=== PATIENT | male | born 1990 | race Caucasian/White ===

== ENCOUNTER 2022-11-30 01:57 | Emergency (ER) | payer OTHER, SELFPAY ==
[2022-11-30 02:16] VITALS: BP 136/63; PULSE 79; RESP 16; TEMP 36.6; O2SAT 98; BMI 24.4
[2022-11-30] MEDS: Doxycycline Monohydrate 100 MG CAPSULE PO (04:07)
[2022-11-30] MEDS: Lidocaine HCl 1 % MPF 2 ML VIAL INFILTRATI (04:07)
--- NOTE | 2022-11-30 04:32 | ED_ITS ---
HPI - Skin/Abscess/Foreign Bdy General Chief complaint: Skin/Abscess/Foreign Body Stated complaint: Abscess Time Seen by Provider: 11/30/22 03:48 Source: patient Mode of arrival: ambulatory Limitations: no limitations History of Present Illness HPI narrative: Patient with frequent a kidney infection noticed old acne rash on the right earlobe 3 days ago which got worse in last 24 hours patient expressed small amou nt of pus now is getting more swollen and pain Related Data Previous Rx's Medication Instructions Recorded doxycycline hyclate 100 mg tablet 100 mg PO BID #20 tabs 11/30/22 ibuprofen 600 mg tablet 600 mg PO Q6H PRN fever or pain 11/30/22 #30 tabs Allergies Allergy/AdvReac Type Severity Reaction Status Date / Time No Known Allergies Allergy Verified 11/30/22 02:24 Review of Systems Review of Systems: Yes all other systems are reviewed and are negative [facility] Social History Social History Advance Directives: No Advance Directives Information Provided: No Physical Exam Vital Signs: Vital Signs: Last Vital Signs Temp 97.8 F 11/30/22 02:16 Pulse 79 11/30/22 02:16 Resp 16 11/30/22 02:16 BP 136/63 11/30/22 02:16 Pulse Ox 98 11/30/22 02:16 O2 Del Method Room Air 11/30/22 02:16 BMI result Body Mass Index 24.4 HEENT: Outer ear/TM images: 1. Swollen right lower part of right earlobe fluctuant with redness Medications Administered Discontinued Medications Generic Name Dose Route Start Last Admin Trade Name Freq PRN Reason Stop Dose Admin Doxycycline Monohydrate 100 mg 11/30/22 03:48 11/30/22 04:07 Doxycycline Monohydrate 100 Mg Capsule PO 11/30/22 03:49 100 mg ONCE ONE Administration Lidocaine HCl 2 ml 11/30/22 03:48 11/30/22 04:07 Lidocaine Hcl 1 % Mpf 2 Ml Vial INFILTRATI 11/30/22 03:49 2 ml ONCE ONE Administration Medical Decision Making Medical Decision Making MDM Narrative: Patient with right earlobe abscess uncomplicated which was drained by doing I and D in the ER patient felt better discharge patient on doxycycline Procedures Abscess I/D Site: face (Right earlobe) Side (if applicable): right Local Anesthetic: lidocaine 1% Amount of anesthesia used (mL): 2 Technique: incised with blade Amount of fluid expressed (mL): 1 Sent for culture/gram staining?: No Irrigation: No Packing used?: plain Discharge Plan Discharge Clinical Impression: Abscess of skin or subcutaneous tissue Patient Disposition: Home, Self-Care Instructions: Abscess Incision and Drainage (DC) Additional Instructions: Local care as advised Antibiotic as prescribed Follow with your PCP Prescriptions: New ibuprofen 600 mg tablet 600 mg PO Q6H PRN (Reason: fever or pain) Qty: 30 0RF doxycycline hyclate 100 mg tablet 100 mg PO BID Qty: 20 0RF Stand Alone Forms: Work/School Release Interventions: ED Discharge Assessment Last Done: 11/30/22 04:37 Discharge Date/Time: 11/30/22 04:37
== END 2022-11-30 04:37 | disposition home or self-care (01) ==
PROVIDERS: Emergency Provider Internal Medicine
DX: H60.01 Abscess of right external ear (principal)
CPT/HCPCS: 69000; 99282; 99284

== ENCOUNTER 2023-04-26 09:20 | Emergency (ER) | payer OTHER, SELFPAY ==
[2023-04-26 09:36] VITALS: BP 145/80; PULSE 95; RESP 16; TEMP 36.6; O2SAT 99; BMI 26.4
--- NOTE | 2023-04-26 09:41 | ED.GENADULT ---
HPI - General Adult General Chief complaint: General Medical Stated complaint: COVID Test Time Seen by Provider: 04/26/23 09:41 Source: patient, RN notes reviewed and old records reviewed Mode of arrival: ambulatory History of Present Illness HPI narrative: 32-year-old male with no significant past medical history presenting to the ED requesting COVID-19 testing for his job. States someone tested positive 5 days ago, potential exposure to days ago. Denies any symptoms present including new/worsening cough, fevers/chills, sore throat, travel. Reports chronic cough due to cigarette smoking Onset (ago): day(s) Related Data Previous Rx's Medication Instructions Recorded doxycycline hyclate 100 mg tablet 100 mg PO BID #20 tabs 11/30/22 ibuprofen 600 mg tablet 600 mg PO Q6H PRN fever or pain 11/30/22 #30 tabs Allergies Allergy/AdvReac Type Severity Reaction Status Date / Time No Known Allergies Allergy Verified 11/30/22 02:24 Review of Systems Review of Systems: Constitutional:No Fever, No Chills ENT/Mouth: No Ear Pain, No Nasal Congestion, No Sinus Pain, No Hoarseness, No sore throat, No Rhinorrhea, No Swallowing Difficulty Cardiovascular: No Chest Pain, No SOB Respiratory: +chronic Cough, No Sputum, No Wheezing Gastrointestinal: No Nausea, No Vomiting, No Diarrhea, No Constipation, No Abdominal pain Musculoskeletal: No joint pain, No Myalgias Skin: No Skin Lesions, No rash Neuro: No Weakness Yes all other systems are reviewed and are negative Constitutional: Constitutional: Reports as per [facility] Past Medical History Attestation statement: The following information was validated with the patient. Source: old records reviewed Social History Social History Advance Directives: No Physical Exam ED Vital Signs: Vital Signs - 24 hr 04/26/23 09:36 Temperature 97.8 F Pulse Rate 95 Respiratory Rate 16 Blood Pressure 145/80 H Pulse Oximetry 99 Oxygen Delivery Method Room Air BMI result Body Mass Index 26.4 Const General: cooperative, healthy appearing and no acute distress Orientation/consciousness: patient oriented x3 Limitations: no limitations HENMT Head: Yes normal to inspection and Yes atraumatic Ears: hearing grossly normal bilaterally General nose exam: Normal external nose present Face and sinus: Yes normal facial exam Eyes General: appearance normal, both eyes and all related structures EOM: EOMs intact bilaterally Neck Neck: Yes normal visual inspection and Yes no meningeal signs Resp Effort & Inspection: normal respiratory effort and no respiratory distress Auscultation: clear to auscultation bilaterally, no crackles, no rhonchi and no wheezes Cardio Rate: regular rate Heart sounds: S1 normal heart sound present and S2 normal heart sound present Skin Rashes: no rashes Wounds: no wounds Neuro General: patient oriented x3, tone normal and no meningeal signs Cranial nerves: Yes CN's II-XII intact bilaterally Gait exam (Neuro): Normal gait present Extrem General: Yes normal to inspection Course Course Course Narrative: COVID and influenza negative Results discussed with patient including worrisome signs and symptoms and strict return precautions, and when to return to the emergency department. They verbalized understanding and feel safe for discharge at this time. Medical Decision Making Medical Decision Making [facility] Narrative: 32-year-old male with no significant past medical history presenting to the ED requesting COVID-19 testing for his job. On exam vital signs stable, NAD, nontoxic appearing, exam unremarkable. Concern for viral syndrome/COVID-19. Plan: COVID & influenza testing Please refer to course for remaining clinical decision making, interpretation of labs/imaging results, and discussions with consultants and/or family members. Differential Diagnosis Differential Diagnoses: The differential diagnosis associated with the presentation includes As above Lab Data [facility] Lab Attestation statement: I reviewed the patient's lab results. Labs: Lab Results 04/26/23 Range/Units 09:30 COVID-19 (DAISY) Negative (Negative) COVID-19 Clin Com See Note Influenza Type A (RAMSES) Negative (Negative) Influenza Type B (RAMSES) Negative (Negative) Influenza A & B Note See Note External Record Review External record reviewed: Inpatient record, Office record, Outpatient record, Prior outpatient labs, Prior outpatient radiology, Primary care record and Outside ED record Tests considered The following testing was considered but not selected: As above Discharge Plan Discharge Patient Disposition: Home, Self-Care Prescriptions: No Action ibuprofen 600 mg tablet 600 mg PO Q6H PRN (Reason: fever or pain) Qty: 30 0RF doxycycline hyclate 100 mg tablet 100 mg PO BID Qty: 20 0RF Referrals: [facility] [Outside] Physician,None [Primary Care Provider] -
[2023-04-26 10:03] LABS: COVID-19 Test Negative (Negative); IDNOW Serial# 08D9AD1C
[2023-04-26 10:06] LABS: IDNOW Serial# 9DB6401D; Influenza A Negative (Negative); Influenza B2 Negative (Negative)
== END 2023-04-26 10:52 | disposition home or self-care (01) ==
PROVIDERS: Physician Assistant; Emergency Provider Emergency Medicine
DX: R05.9 Cough, unspecified (principal); Z11.52 Encounter for screening for COVID-19; Z20.822 Contact with and (suspected) exposure to COVID-19
CPT/HCPCS: 87502; 87635; 99282; 99283

== ENCOUNTER 2023-05-05 19:00 | Emergency (ER) | payer OTHER, SELFPAY ==
--- NOTE | ~2023-05-05 | XR_ITS ---
EXAMINATION: XR CHEST CLINICAL INFORMATION: Cough and congestion. Chest tightness. COMPARISON: None available. TECHNIQUE: Frontal view of the chest was obtained. FINDINGS: No significant abnormality is noted involving the heart, lungs, mediastinum, bony thorax or soft tissues. XR/XR chest 1V IMPRESSION: Unremarkable examination.
[2023-05-05 19:07] VITALS: BP 109/72; PULSE 85; RESP 20; TEMP 37; O2SAT 98; BMI 22.3
[2023-05-05 19:42] LABS: IDNOW Serial# 58CA691E; Influenza A Negative (Negative); Influenza B2 Negative (Negative)
[2023-05-05 19:44] LABS: COVID-19 Test Negative (Negative); IDNOW Serial# 08D9AD1C
--- NOTE | 2023-05-05 20:26 | ED.GENADULT ---
HPI - General Adult General Chief complaint: Upper Respiratory Symptoms Stated complaint: nasal congestion,headache Time Seen by Provider: 05/05/23 20:25 Source: patient Mode of arrival: ambulatory Limitations: no limitations History of Present Illness HPI narrative: 32 year old male with no significant pmhx presents to the ED today with complaint of nasal congestion, productive cough and headache x2 days. Cough is productive of green/yellow sputum. Reports EDMONDS on coughing. States that he went into work today and they sent him home due to his congestion. Requesting work note. No sick contacts. Denies fever, chills, eye pain, vision changes, ear pain, neck pain, chest pain, shortness of breath, abd pain, N/V. Admits to being a daily cigarette smoker. Related Data Previous Rx's Medication Instructions Recorded doxycycline hyclate 100 mg tablet 100 mg PO BID #20 tabs 11/30/22 ibuprofen 600 mg tablet 600 mg PO Q6H PRN fever or pain 11/30/22 #30 tabs Allergies Allergy/AdvReac Type Severity Reaction Status Date / Time No Known Allergies Allergy Verified 05/05/23 19:10 Review of Systems Review of Systems: Constitutional: No fever, chills, fatigue, night sweats, weight changes ENT/Mouth: No ear pain, hearing loss, +nasal congestion, No sinus pain, rhinorrhea, sore throat Eyes: No eye pain, swelling, redness, vision changes, discharge Cardio: No chest pain, palpitations, ROBISON, orthopnea, peripheral edema Pulm: No SOB, +cough, +sputum, No wheezing, dyspnea, hemoptysis GI: No nausea, vomiting, hematemesis, abdominal pain, diarrhea, constipation, hematochezia, melena : No irregular bleeding, dysuria, frequency, urgency, hesitancy, hematuria, flank pain, urinary flow changes, urinary incontinence or retention MSK: No back pain, neck pain, joint pain, myalgias Skin: No lesions, rashes Neuro: No weakness, numbness, paresthesias, LOC, dizziness, headache All other systems reviewed and are negative. [facility] Past Medical History Attestation statement: The following information was validated with the patient. Source: old records reviewed and nursing notes reviewed Social History Alcohol intake: never Smoked in Last 30 Days: Yes Use of substances other than those prescribed or required for medical reasons: Yes Substance Use Type: Marijuana Substance Use Frequency: Daily Advance Directives: No Advance Directives Information Provided: No Physical Exam ED Vital Signs: Vital Signs - 24 hr 05/05/23 19:07 05/05/23 20:45 Temperature 98.6 F 97.8 F Pulse Rate 85 71 Respiratory Rate 20 19 Blood Pressure 109/72 121/71 Pulse Oximetry 98 98 Oxygen Delivery Method Room Air Room Air BMI result Body Mass Index 22.3 Vital signs stable, afebrile Const General: cooperative, healthy appearing, comfortable, no acute distress, alert and awake Orientation/consciousness: patient oriented x3 Limitations: no limitations HENMT Other: + posterior oropharynx without erythema or edema. No tonsillar exudates. Uvula midline. Controlling secretions and speaking in complete sentences. Ears: hearing grossly normal bilaterally, external ears normal, TM's normal bilaterally, EAC's normal, mastoids normal and no periauricular adenopathy General nose exam: Normal external nose present Face and sinus: Yes normal facial exam and Yes sinuses nontender Mouth: Normal oral and palatal mucosa present and moist mucous membranes Eyes General: appearance normal, both eyes and all related structures Periorbital: periorbital findings normal Conjunctivae: conjunctivae normal Sclerae: sclerae normal Pupils: Equal, round and reactive pupils present Resp Effort & Inspection: normal respiratory effort Auscultation: clear to auscultation bilaterally and no wheezes Cardio Rate: regular rate Rhythm: regular rhythm Peripheral pulses: radial pulses present GI Inspection: Yes normal to inspection Palpation (GI): Soft to palpation and nontender Skin General skin exam: no rashes or lesions noted Neuro General: patient oriented x3, gait normal and moves all extremities Cranial nerves: Yes Equal, round and reactive pupils present Extrem General: Yes normal to inspection and Yes capillary refill normal Course Course Course Narrative: 2028-- Serology negative for COVID, influenza. Chest x-ray pending. CXR without consolidation or infiltrates > PNA unlikely. Symptoms are consistent with URI, likely viral. Informed patient of unremarkable workup. Treatment is symptomatic. Will provide him with work note for today. Discussed strict return precautions. All questions answered at this time. Patient is agreeable with disposition and stable for discharge. Medical Decision Making Medical Decision Making MDM Narrative: 32 year old male with no significant pmhx presents to the ED today with complaint of nasal congestion, productive cough and headache x2 days. Vital signs stable, afebrile. Patient is nontoxic appearing and in no acute distress. Sinuses nontender. Posterior oropharynx without erythema or edema, no tonsillar exudates. Uvula midline. Controlling secretions and speaking in complete sentences. No cervical lymphadenopathy. Lungs CTA bilaterally. Clinical concern for viral syndrome, sinusitis, pneumonia, headache, migraine. Unlikely strep throat, mono, [employer], retropharyngeal abscess, epiglottitis. Serology and chest x-ray ordered in triage. Plan to review and re-evaluate patient. Differential Diagnosis Differential Diagnoses: The differential diagnosis associated with the presentation includes As above. Admission/Observation Not indicated. Lab Data MDM Lab Attestation statement: I reviewed the patient's lab results. As above. Labs: Lab Results 05/05/23 Range/Units 19:21 COVID-19 (DAISY) Negative (Negative) COVID-19 Clin Com See Note Influenza Type A (RAMSES) Negative (Negative) Influenza Type B (RAMSES) Negative (Negative) Influenza A & B Note See Note Independent Interpretation I performed an independent interpretation of an: Plain X-Ray Interpretation: CXR without consolidation or infiltrate to suggest pneumonia, agree with radiologist's interpretation. Radiology Impression Discussion of test interpretation with radiology: I have reviewed the radiologist's reading. Radiologist Impression: XR chest 1V IMPRESSION: Unremarkable examination. Independent Historian Clinical information obtained from an independent historian. History obtained from or confirmed by: Friend External Record Review External record reviewed: Inpatient record Chronic Conditions Patient?s care impacted by: Other (tobacco use) Critical Care Time Critical Care Time Critical Care Time: No Discharge Plan Discharge Clinical Impression: Upper respiratory infection Patient Disposition: Home, Self-Care Instructions: Viral Syndrome (ED) Additional Instructions: You tested negative for COVID and influenza today. Your chest x-ray did not show any pneumonia. You likely have a viral infection. The treatment for this is symptomatic. You may take [id number] Tylenol and ibuprofen as needed for fever and body aches. Make sure you are staying hydrated and getting dressed. Follow-up with your primary care provider as needed. If you do not have an one, one has been provided to you. You may call them to make an appointment. They will not call you. If symptoms persist or worsen please return to the emergency department. In the case of an emergency call 911. Prescriptions: No Action ibuprofen 600 mg tablet 600 mg PO Q6H PRN (Reason: fever or pain) Qty: 30 0RF doxycycline hyclate 100 mg tablet 100 mg PO BID Qty: 20 0RF Stand Alone Forms: Work/School Release Interventions: ED Discharge Assessment Last Done: 05/05/23 21:54 Discharge Date/Time: 05/05/23 21:55
[2023-05-05 20:45] VITALS: BP 121/71; PULSE 71; RESP 19; TEMP 36.6; O2SAT 98
== END 2023-05-05 21:55 | disposition home or self-care (01) ==
PROVIDERS: Emergency Provider Emergency Medicine Emergency Medical Services
DX: J06.9 Acute upper respiratory infection, unspecified (principal); R05.9 Cough, unspecified; Z11.52 Encounter for screening for COVID-19; F12.90 Cannabis use, unspecified, uncomplicated
CPT/HCPCS: 71045; 87502; 87635; 99283; 99284

== ENCOUNTER 2023-05-29 21:46 | Emergency (ER) | payer OTHER, SELFPAY ==
--- NOTE | ~2023-05-29 | XR_ITS ---
EXAMINATION: XR CHEST CLINICAL INFORMATION: Cough COMPARISON: Previous chest x-ray April 2023 TECHNIQUE: 2 views of the chest were obtained. FINDINGS: No significant abnormality is noted involving the heart, lungs, mediastinum, bony thorax or soft tissues. XR/XR chest 2V IMPRESSION: Unremarkable examination.
[2023-05-29 21:53] VITALS: BP 116/51; PULSE 82; RESP 18; TEMP 36.6; O2SAT 95; BMI 27.6
--- NOTE | 2023-05-29 23:26 | MHC.EDTECH ---
Patient brought back to triage area, Sars/FLU/RSV obtained and sent to lab
[2023-05-30 00:03] LABS: Influenza A PCR NEGATIVE (Negative); Influenza B PCR NEGATIVE (Negative); Resp Syncy Virus RNA Qual PCR NEGATIVE (Negative); SARS COV2 PCR INHOUSE NEGATIVE (Negative)
--- NOTE | 2023-05-30 00:18 | ED.URI ---
HPI - URI/Sore Throat General Chief Complaint: Upper Respiratory Symptoms Stated Complaint: Chest Congestion Time Seen by Provider: 05/30/23 00:09 Source: patient Mode of arrival: ambulatory Limitations: no limitations History of Present Illness HPI Narrative: Patient is a 33-year-old male presents emergency department for evaluation of chest congestion, chills, shortness of breath. When asked, he describes feeling short of breath as being ?a bother . This is typically worse upon awakening in before going to bed. He states he has been having these ongoing symptoms since he was ill at the end of April with an upper respiratory infection. He says his symptoms have simply not improved but have not worsened. He denies any recent unintentional weight loss, nausea vomiting, abdominal pain, chest pain, dizziness lightheadedness. He has not followed up with his primary care provider. He denies any known sick contacts. Related Data Previous Rx's Medication Instructions Recorded doxycycline hyclate 100 mg tablet 100 mg PO BID #20 tabs 11/30/22 ibuprofen 600 mg tablet 600 mg PO Q6H PRN fever or pain 11/30/22 #30 tabs albuterol sulfate 90 mcg/actuation 2 puff inhalation Q4-6H PRN 05/30/23 aerosol inhaler shortness of breath or wheezing #6.7 grams azithromycin 250 mg tablet See Rx Instructions PO .COMPLEX #6 05/30/23 tabs benzonatate 100 mg capsule 100 mg PO TID PRN cough #30 caps 05/30/23 Allergies Allergy/AdvReac Type Severity Reaction Status Date / Time No Known Allergies Allergy Verified 05/05/23 19:10 Review of Systems Review of Systems: Yes all other systems are reviewed and are negative [facility] Past Medical History Attestation statement: The following information was validated with the patient. Source: old records reviewed Social History Social History Alcohol intake: never Substance Use Type: Marijuana Advance Directives: No Advance Directives Information Provided: No Physical Exam Vital Signs: Vital Signs: Last Vital Signs Temp 97.9 F 05/29/23 21:53 Pulse 82 05/29/23 21:53 Resp 18 05/29/23 21:53 BP 116/51 L 05/29/23 21:53 Pulse Ox 95 05/29/23 21:53 O2 Del Method Room Air 05/29/23 21:53 BMI result Body Mass Index 27.6 Appearance: Alert.?Oriented to person, place and time. No acute distress.?Normal affect. Eyes: Pupils equal, round and reactive to light.? ENT: TM normal bilaterally. Pharynx normal.?? Neck: Normal inspection.? Neck supple.??No cervical adenopathy CVS: Heart sounds normal. Normal heart rate and rhythm.? Pulses normal.?? Respiratory: No respiratory distress.? Lung sounds clear to auscultation bilaterally?? Abdomen: Soft and non-tender. Normoactive bowel sounds. Skin: Skin warm and dry.? Normal skin color.? ? Extremities: No lower extremity edema.? Neuro: Moves all extremities spontaneously. Sensation intact bilaterally. No motor deficits. Ambulates with normal steady gait. Medical Decision Making Medical Decision Making [facility] Narrative: Patient is a 33-year-old malepresenting for evaluation of upper respiratory symptoms. COVID-19/influenza testing are negative. At this time history and physical exam not consistent with ACS/PE/pneumonia. CXR is without acute cardiopulmonary process. Overall he is Well-appearing, nontoxic, afebrile, no tachycardia or tachypnea/hypoxia. Speaking clear full sentences, ambulatory with steady gait. Symptoms at this time most consistent with a bronchitis. Sent prescription for albuterol inhaler, azithromycin, Tessalon to pharmacy. Discussed conservative treatment including rest, hydration, Tylenol/ibuprofen as needed for fever and body aches, saline nasal spray, humidifier, [id number] cold medication. Advised to follow-up with primary care provider as needed, discussed reasons to return back to the emergency department. All questions were answered. Patient discharged home in stable condition. Provided with a return to work/school note. Differential Diagnosis Differential Diagnoses: The differential diagnosis associated with the presentation includes (As noted above) Admission/Observation Consideration of admission/observation: Escalation of care including admission/observation considered (See narrative above) Lab Data [facility] Lab Attestation statement: I reviewed the patient's lab results. Labs: Lab Results 05/29/23 Range/Units 23:21 Influenza Type A (PCR) NEGATIVE (Negative) Influenza Type B (PCR) NEGATIVE (Negative) RSV RNA Qual (PCR) NEGATIVE (Negative) SARS-CoV-2 RNA (RT-PCR) NEGATIVE (Negative) Independent Interpretation I performed an independent interpretation of an: Plain X-Ray (I personally interpreted chest x-ray and agree with radiologist impression.) Radiology Impression Discussion of test interpretation with radiology: I have reviewed the radiologist's reading. Radiologist Impression: XR/XR chest 2V IMPRESSION: Unremarkable examination. Independent Historian Clinical information obtained from an independent historian. History obtained from or confirmed by: Spouse External Record Review External record reviewed: Outpatient record Prescription Management I considered prescription management with: Antibiotic Discharge Plan Discharge Clinical Impression: Bronchitis Patient Disposition: Home, Self-Care Instructions: How to Use a Metered-Dose Inhaler (ED), Acute Bronchitis (ED) Additional Instructions: Take medications as prescribed. Follow-up with your primary care provider Return back to emergency department any new or worsening symptoms or concerns. Prescriptions: New albuterol sulfate 90 mcg/actuation HFA aerosol inhaler 2 puff inhalation Q4-6H PRN (Reason: shortness of breath or wheezing) Qty: 6.7 0RF benzonatate 100 mg capsule 100 mg PO TID PRN (Reason: cough) Qty: 30 0RF azithromycin 250 mg tablet See Rx Instructions .ROUTE .COMPLEX Qty: 6 0RF Rx Instructions: For 250 mg dose pack: take 500 mg today (day 1), then 250 mg for 4 days (days 2-5) No Action ibuprofen 600 mg tablet 600 mg PO Q6H PRN (Reason: fever or pain) Qty: 30 0RF doxycycline hyclate 100 mg tablet 100 mg PO BID Qty: 20 0RF Referrals: Physician,None [Primary Care Provider] - Stand Alone Forms: Work/School Release
== END 2023-05-30 01:23 | disposition home or self-care (01) ==
PROVIDERS: Emergency Provider Internal Medicine
DX: J40 Bronchitis, not specified as acute or chronic (principal); R06.02 Shortness of breath; Z20.822 Contact with and (suspected) exposure to COVID-19; Z20.828 Contact with and (suspected) exposure to other viral communicable diseases
CPT/HCPCS: 0241U; 71046; 99282; 99283

== ENCOUNTER 2023-07-15 04:07 | Emergency (ER) | payer OTHER, SELFPAY ==
--- NOTE | ~2023-07-15 | XR_ITS ---
EXAMINATION: XR HIP, RIGHT CLINICAL INFORMATION: Pain COMPARISON: None available. TECHNIQUE: Two views of the right hip. FINDINGS: Alignment across the hips is anatomic, with maintained joint spaces. No acute fracture is seen. Sacroiliac joints and pubic symphysis appear intact. XR/XR hip RT w PEL1V IMPRESSION: No acute findings identified.
--- NOTE | ~2023-07-15 | XR_ITS ---
EXAMINATION: XR CALCANEUS, RIGHT CLINICAL INFORMATION: Pain COMPARISON: None available. TECHNIQUE: Lateral and axial views of the right calcaneus were obtained. FINDINGS: No acute fracture is seen. Articular alignment in the visualized foot appears anatomic. XR/XR calcaneus RT min 2V IMPRESSION: No acute findings identified.
[2023-07-15 04:11] VITALS: BP 139/89; PULSE 102; RESP 17; TEMP 36.6; O2SAT 98
--- NOTE | 2023-07-15 04:20 | ED_ITS ---
HPI - Extremity Problem General Chief complaint: Extremity Problem Stated complaint: R Hip & Heel Pain From Standing Time Seen by Provider: 07/15/23 04:14 Source: patient Mode of arrival: ambulatory Limitations: no limitations History of Present Illness HPI Narrative: 33 yo male PMH of asthma here with weeks of R heel pain and R hip pain due to standing on his feet for 12 hours at work at [employer]. No fevers, numbness, weakness. He wants to get checked out. Complaint: extremity pain and joint pain Onset (ago): week(s) Pain Consistency: intermittent Location: right and lower extremity Quality: aching Radiation: none Relieving factors: rest Exacerbating factors: range of motion and weight bearing Associated symptoms: denies other symptoms Context: other (standing for 12 hours at work) Related Data Previous Rx's Medication Instructions Recorded doxycycline hyclate 100 mg tablet 100 mg PO BID #20 tabs 11/30/22 ibuprofen 600 mg tablet 600 mg PO Q6H PRN fever or pain 11/30/22 #30 tabs albuterol sulfate 90 mcg/actuation 2 puff inhalation Q4-6H PRN 05/30/23 aerosol inhaler shortness of breath or wheezing #6.7 grams azithromycin 250 mg tablet See Rx Instructions PO .COMPLEX #6 05/30/23 tabs benzonatate 100 mg capsule 100 mg PO TID PRN cough #30 caps 05/30/23 ibuprofen 600 mg tablet 600 mg PO Q6H PRN pain #30 tabs 07/15/23 Allergies Allergy/AdvReac Type Severity Reaction Status Date / Time No Known Allergies Allergy Verified 07/15/23 04:25 Review of Systems Review of Systems: Constitutional : No Fever, No Chills ENT/Mouth : No Ear Pain, No Hoarseness, No sore throat Cardiovascular : No Chest Pain, No SOB Respiratory : No Cough, No Dyspnea Gastrointestinal : No Nausea, No Vomiting, No Diarrhea, No abdominal Pain Genitourinary : No Dysuria, No Hematuria Musculoskeletal : positive joint pain, No Myalgias, No Joint Swelling Skin : No Skin lacerations, No rash Neuro : No Weakness, No Numbness, No Loss of Consciousness, No Dizziness, No Headache Psych : No Anxiety/Panic, No Depression All other systems reviewed and are negative PMFSH Past Medical History Attestation statement: The following information was validated with the patient. Source: old records reviewed Medical History No pertinent past medical history Social History Social History Alcohol intake: never Smoked in Last 30 Days: Yes Use of substances other than those prescribed or required for medical reasons: Yes Substance Use Type: Crack/Cocaine and Marijuana Advance Directives: No Advance Directives Information Provided: No Physical Exam Vital Signs: Vital Signs: Last Vital Signs Temp 97.9 F 07/15/23 04:11 Pulse 102 H 07/15/23 04:11 Resp 17 07/15/23 04:11 BP 139/89 07/15/23 04:11 Pulse Ox 98 07/15/23 04:11 O2 Del Method Room Air 07/15/23 04:11 BMI result Body Mass Index 24.9 Appearance: Alert. Oriented X3. No acute distress. Eyes: Pupils equal, round and reactive to light. ENT: Pharynx normal. Neck: Normal inspection. Neck supple. CVS: Normal heart rate and rhythm. Pulses normal. Respiratory: No respiratory distress. Breath sounds normal. Abdomen: Soft and nontender. Skin: Skin warm and dry. Normal skin color. Normal skin turgor. Extremities: No lower extremity edema. No calf ttp R extremity appears normal distal NV intact Neuro: Oriented X 3. No motor deficit. No sensory deficit. Medical Decision Making Medical Decision Making [facility] Narrative: 33 yo male with hx of working at [employer] works 12 hour shifts and now has pain in R hip and R heel he has no rash and is neurovasc intact at this time will obtain xrays. He has no signs of infection Differential Diagnosis Differential Diagnoses: The differential diagnosis associated with the presentation includes arthritis, arthralgia, overuse Independent Interpretation I performed an independent interpretation of an: Plain X-Ray (normal ) Radiology Impression Discussion of test interpretation with radiology: I have reviewed the radiologist's reading. External Record Review External record reviewed: Inpatient record Discharge Plan Discharge Clinical Impression: Arthralgia Qualifiers: Joint pain location: hip Laterality: right Qualified Code(s): M25.551 - Pain in right hip Heel pain Qualifiers: Laterality: right Qualified Code(s): M79.671 - Pain in right foot Patient Disposition: Home, Self-Care Instructions: Arthralgia (ED) Additional Instructions: xrays are normal no acute findings on heel or hip xrays. make sure you are wearing supportive shoes. Prescriptions: New ibuprofen 600 mg tablet 600 mg PO Q6H PRN (Reason: pain) Qty: 30 0RF No Action ibuprofen 600 mg tablet 600 mg PO Q6H PRN (Reason: fever or pain) Qty: 30 0RF doxycycline hyclate 100 mg tablet 100 mg PO BID Qty: 20 0RF albuterol sulfate 90 mcg/actuation HFA aerosol inhaler 2 puff inhalation Q4-6H PRN (Reason: shortness of breath or wheezing) Qty: 6.7 0RF benzonatate 100 mg capsule 100 mg PO TID PRN (Reason: cough) Qty: 30 0RF azithromycin 250 mg tablet See Rx Instructions .ROUTE .COMPLEX Qty: 6 0RF Rx Instructions: For 250 mg dose pack: take 500 mg today (day 1), then 250 mg for 4 days (days 2-5) Stand Alone Forms: Work/School Release
[2023-07-15 04:22] VITALS: BMI 24.9
== END 2023-07-15 06:37 | disposition home or self-care (01) ==
PROVIDERS: Emergency Provider Emergency Medicine
DX: M25.551 Pain in right hip (principal); M79.671 Pain in right foot; Z79.899 Other long term (current) drug therapy
CPT/HCPCS: 73502; 73650; 99283; 99284

== ENCOUNTER 2025-02-21 11:14 | Emergency (ER) | payer MEDICAID, SELFPAY ==
--- NOTE | ~2025-02-21 | XR_ITS ---
CLINICAL HISTORY: cough 2 view chest x-ray. Comparison: CR/SR - XR CHEST 2 VIEWS - 05/29/2023 10:23 PM EST Findings: Normal lung volumes. Lungs are clear. No pneumothorax or pleural effusion. Heart size normal. No passive venous congestion. No midline shift or tracheal deviation. No acute fracture. Impression: 1. No acute cardiopulmonary disease. This document has been electronically signed by: Bolivar Kaminski MD on 02/21/2025 12:00:25
[2025-02-21 11:21] VITALS: BP 155/79; PULSE 95; RESP 18; TEMP 36.6; O2SAT 95; BMI 25.8
--- NOTE | 2025-02-21 11:21 | ED.GENADULT ---
HPI - General Adult General Chief complaint: Upper Respiratory Symptoms Stated complaint: cold Time Seen by Provider: 02/21/25 11:32 History of Present Illness ED Provider: Oliver Galindo MD HPI narrative: 34-year-old male with nasal congestion cough cold symptoms. Denies fever to me. No hemoptysis. Denies chest pain or difficulty breathing. Fatigue myalgias diffusely. No recent sick contacts or travel Related Data Previous Rx's ?Medication ?Instructions ?Recorded doxycycline hyclate 100 mg tablet 100 mg PO BID #20 tabs 11/30/22 ibuprofen 600 mg tablet 600 mg PO Q6H PRN fever or pain 11/30/22 #30 tabs albuterol sulfate 90 mcg/actuation 2 puff inhalation Q4-6H PRN 05/30/23 aerosol inhaler shortness of breath or wheezing #6.7 grams azithromycin 250 mg tablet See Rx Instructions PO .COMPLEX #6 05/30/23 tabs benzonatate 100 mg capsule 100 mg PO TID PRN cough #30 caps 05/30/23 ibuprofen 600 mg tablet 600 mg PO Q6H PRN pain #30 tabs 07/15/23 Allergies Allergy/AdvReac Type Severity Reaction Status Date / Time No Known Allergies Allergy Verified 02/21/25 11:23 [facility] Past Medical History Medical History No pertinent past medical history Social History Social History Alcohol intake: never Substance Use Type: Crack/Cocaine and Marijuana Advance Directives: No Advance Directives Information Provided: No Do you have a plan to hurt others: No Plan Physical Exam ED Exam Exam: EXAM: Gen: Alert, awake, well appearing, well hydrated. Head: Atraumatic Eyes: Anicteric, Normal conjunctiva. ENT: Moist mucosa, no pallor. ?No facial tenderness or active nasal discharge Neck: Supple. Skin: ?No observable rash or bruising on exposed or examined skin Respiratory: Breathing comfortably, No distress.Clear to auscultation bilaterally, symmetric chest expansion, No wheeze, rales, ronchi. Cardiovascular: Regular rate and rhythm. No murmurs or rub. Well perfused periphery, warm extremities. No edema. ? Abdominal: No focal tenderness. Soft, no objective distension. No palpable masses or obvious organomegaly. ?No guarding, no rebound tenderness or other peritoneal findings. : No flank tenderness. Neuro: Alert. Gross movement of all extremities intact. ? Psych: Calm. Cooperative. MSK: No grossly visible deformity. Vital signs: See flowsheet Vital Signs: Vital Signs - 24 hr 02/21/25 11:21 02/21/25 12:10 Temperature 97.8 F 97.8 F Pulse Rate 95 95 Respiratory Rate 18 18 Blood Pressure 155/79 H 155/79 H Pulse Oximetry 95 95 Oxygen Delivery Method Room Air Room Air BMI result Body Mass Index 25.8 Course Course Course Narrative: Rapid medical examination performed in triage by Ana Barone PA-C. Patient is a 34 year old assigned male at presenting to the emergency department with a cough and feeling generally unwell. Detailed physical exam and review of systems are deferred to the hvac mechanical engineer. Imaging and swabs ordered. Patient placed back in the waiting room pending room availability and results. Patient seen and dispositioned by Dr. Galindo, please see his note from the same visit date. Medical Decision Making Medical Decision Making MDM Narrative: Medical Decision Makin-year-old male with URI symptoms. Afebrile here looks well. COVID-19 negative. No abnormal lung sounds or difficulty breathing or respiratory distress. Physical examination reassuring. Although his symptom duration is on the longer side this seems consistent with and suggestive of mild viral URI. Counseled him gave him return precautions which she understood. Symptomatic treatment with [id number] was recommended. Preliminary Favored Differential Diagnosis: COVID-19, URI, nasal congestion, viral syndrome among additional considered etiologies Testing Interpreted Independently: Chest x-ray two-view no acute infiltrate or effusion no pneumothorax. Normal mediastinum Radiology or Lab testing Results Reviewed: ?See below for details Consults: ?See below for details Independent Historians/External Chart Reviews: ?See below for details Social Determinants of Health Impacting MDM/Planning: ?See below for details Lab Data MDM Lab Attestation statement: I reviewed the patient's lab results. Labs: Lab Results 02/21/25 Range/Units 11:29 COVID-19 (DAISY) Negative (Negative) COVID-19 Clin Com See Note Influenza Type A (RAMSES) Negative (Negative) Influenza Type B (RAMSES) Negative (Negative) Influenza A & B Note See Note Independent Interpretation I performed an independent interpretation of an: Plain X-Ray Discharge Plan Discharge Clinical Impression: Upper respiratory infection Patient Disposition: Home, Self-Care Instructions: Upper Respiratory Infection (ED) Additional Instructions: DISCHARGE DIAGNOSES: Likely viral syndrome/upper respiratory infection HISTORY OF PRESENTATION: ?Nasal congestion cough body aches joint aches headaches for about a week EMERGENCY DEPARTMENT COURSE,TESTS, TREATMENTS: While in the ED today reassuring physical examination performed including ears, throat, lungs and body examination. Negative COVID test DISCHARGE MEDICATIONS: ?No prescribed medications [id number] medications can be continued FOLLOW-UP: ?Call your primary or general physician soon as possible to discuss your symptoms, your ED visit and to discuss follow up plans Call your primary doctor for follow up INSTRUCTIONS ?& RETURN PRECAUTIONS: If any symptoms change first call your primary physician, if it is after-hours your primary doctors office should have a provider central communications specialist you can speak with. If the symptoms are severe or very concerning to you then call 911 or return to the ED. [Return for severe or worsening headache, severe worsening cough shortness of breath developing. Oliver Galindo MD Emergency Physician [facility] Prescriptions: No Action ibuprofen 600 mg tablet 600 mg PO Q6H PRN (Reason: fever or pain) Qty: 30 0RF doxycycline hyclate 100 mg tablet 100 mg PO BID Qty: 20 0RF albuterol sulfate 90 mcg/actuation HFA aerosol inhaler 2 puff inhalation Q4-6H PRN (Reason: shortness of breath or wheezing) Qty: 6.7 0RF benzonatate 100 mg capsule 100 mg PO TID PRN (Reason: cough) Qty: 30 0RF azithromycin 250 mg tablet See Rx Instructions .ROUTE .COMPLEX Qty: 6 0RF Rx Instructions: For 250 mg dose pack: take 500 mg today (day 1), then 250 mg for 4 days (days 2-5) ibuprofen 600 mg tablet 600 mg PO Q6H PRN (Reason: pain) Qty: 30 0RF Interventions: ED Discharge Assessment Last Done: 02/21/25 12:10 Discharge Date/Time: 02/21/25 12:14 Print Language: Uzbek
--- OUTSIDE RECORDS SUMMARY | 2025-02-21 11:46 | XMS_ITS | Encounter Summary ---
Author Organization [facility] Address [address] [place] [address] Phone Care Team Providers Care Public Relations Account Supervisor Name Role Phone Keli Hester MD Primary Care Provider Unavailabl e Encounter Details Date Type Department Care Team (Late st Contact Info) Description 01/25/2017 Conversion Encounter [facility] - [address] [address] Social History Tobacco Use Types Packs/Day Years Used Date Smoking Tobacco: Never Assessed Sex and Gender Information Value Date Recorded Sex Assigned at Not on file Legal Sex Male 4:39 PM EDT Gender Identity Not on file Sexual Orientation Not on file documented as of this encounter Plan of Treatment Not on file documented as of this encounter Visit Diagnoses Not on filedocumented in this encounter Care Teams Public Relations Account Supervisor Relationship Specialty Start Date End Date Keli Hester MD PCP - General 01/19/17 documented as of this encounter
--- OUTSIDE RECORDS SUMMARY | 2025-02-21 11:46 | XMS_ITS | Clinical Summary ---
Author Organization [facility] Address [address] [place] [id number] Phone Care Team Providers Care Body And Fender Mechanic Name Role Phone Keli Hester MD Primary Care Provider Unavailabl e Immunizations Immunization Administration Dates Next Due DTP 02/08/1994, 3,1992,08/08 DTaP 5 08/11/1997 H1N1 04/05/2009 Hep B, ped/adol 03/10/1993,1992,1992 Hib (PRP-T) 10/08/1993, 3,1992,08/08 IPV 08/11/1997, 4,1992,08/08 Influenza Split 05/19/2010 MMR 08/08/1996,10/08/1993 Meningococcal Conj (Menactra) MCV4P 04/05/2009 Td (adult) (MBL), 2 Lf tetan us toxoid, PF, adsorbed 04/22/2004 Tdap 04/05/2009 Family History Relation Name Status Comments Cousin 1 Cousin: No Fami ly history of No history of Developmental dislocation of hip, Asthma, Deafness Cousin 2 Cousin: No Fami ly history of No history of Developmental dislocation of hip, Asthma, Deafness Father Alive Father: Alive a nd well Maternal Grandmother Materna l grandmother: Diabetes mellitus Mother Alive Mother: Migrain es Social History Tobacco Use Types Packs/Day Years Used Date Smoking Tobacco: Never Assessed Sex and Gender Information Value Date Recorded Sex Assigned at Not on file Legal Sex Male 4:39 PM EDT Gender Identity Not on file Sexual Orientation Not on file Last Filed Vital Signs Vital Sign Reading Time Taken Comments Blood Pressure 120/72 05/19/2010 12:00 AM EST Pulse 80 05/19/2010 12:00 AM EST Temperature 37.2 C (99 F) 11/08/2010 12:00 AM EDT Respiratory Rate - - Oxygen Saturation - - Inhaled Oxygen Concentration - - Weight 64.9 kg (143 lb) 11/08/2010 12:00 AM EDT Height 162.6 cm (5' 4 ) 10/18/2010 12:00 AM EDT Body Mass Index 24.55 10/18/2010 12:00 AM EDT Plan of Treatment Health Maintenance Due Date Last Done Comments Varicella Vaccines (1 of 2 - 13+ 2-dose series) 2005 DTaP,Tdap,and Td Vaccines (7 - Td or Tdap) 04/05/2019 04/05/2009, 04/22/2004, 08/11/1997, Additional history exists HPV Vaccines (1 - 3-dose SCDM series) 2019 Influenza Vaccines (#1) 2025 05/19/2010 COVID-19 Vaccine ( season) 2025 Hepatitis B Vaccines Completed 03/10/1993, 1992, 1992 HIB Vaccines Completed 10/08/1993, 10/11, 1992, Additional history exists MMR Vaccines Completed 08/08/1996, 10/08/1993 IPV Vaccines Completed 08/11/1997, 01/11, 1992, Additional history exists Meningococcal Vaccine Completed 04/05/2009 Hepatitis A Vaccines Aged Out No long er eligible based on patient's age to complete this topic Men B Vaccine Aged Out No longer elig ible based on patient's age to complete this topic Pneumococcal Vaccine Aged Out No long er eligible based on patient's age to complete this topic Care Teams Body And Fender Mechanic Relationship Specialty Start Date End Date Keli Hester MD PCP - General 01/19/17
[2025-02-21 11:47] LABS: COVID-19 Test Negative (Negative); IDNOW Serial# 6674DD1D
[2025-02-21 11:55] LABS: IDNOW Serial# 16C4AD1C
--- NOTE | 2025-02-21 11:55 | ED_ITS ---
HPI - URI/Sore Throat General Chief Complaint: Upper Respiratory Symptoms Stated Complaint: cold Time Seen by Provider: 02/21/25 11:32 History of Present Illness ED Provider: Oliver Galindo MD HPI Narrative: 34-year-old male no significant past medical history he is an active tobacco marijuana smoker no daily drinking or other toxic habits no daily medications. He says for about a week now he has had mild intermittent gradual-onset headaches, joint and body aches nasal congestion and coughing. No dyspnea no hemoptysis. Denies leg edema. Mild generalized abdominal discomfort associated with this particularly with coughing. No body rash no tick bites Related Data Previous Rx's ?Medication ?Instructions ?Recorded doxycycline hyclate 100 mg tablet 100 mg PO BID #20 ta bs 11/30/22 ibuprofen 600 mg tablet 600 mg PO Q6H PRN fever or p ain 11/30/22 #30 tabs albuterol sulfate 90 mcg/actuation 2 puff inhalation Q 4-6H PRN 05/30/23 aerosol inhaler shortness of breath or wheez ing #6.7 grams azithromycin 250 mg tablet See Rx Instructions PO .COM PLEX #6 05/30/23 tabs benzonatate 100 mg capsule 100 mg PO TID PRN cough #30 caps 05/30/23 ibuprofen 600 mg tablet 600 mg PO Q6H PRN pain #30 t abs 07/15/23 Allergies Allergy/AdvReac Type Severity Reaction Status Date / Time No Known Allergies Allergy Verified 02/21/25 11:23 [facility] Past Medical History Medical History No pertinent past medical history Social History Social History Alcohol intake: never Substance Use Type: Crack/Cocaine and Marijuana Advance Directives: No Advance Directives Information Provided: No Do you have a plan to hurt others: No Plan Physical Exam Exam: Exam: EXAM: Gen: Alert, awake, well appearing, well hydrated. Sounds nasally congested overall looks well nontoxic Head: Atraumatic Eyes: Anicteric, Normal conjunctiva. ENT: Moist mucosa, no pallor. ?TMs and canals clear posterior oropharynx with mild cobblestoning Neck: Supple. Skin: ?No observable rash or bruising on exposed or examined skin Respiratory: Breathing comfortably, No distress.Clear to auscultation bilaterally, symmetric chest expansion, No wheeze, rales, ronchi. Cardiovascular: Regular rate and rhythm. No murmurs or rub. Well perfused periphery, warm extremities. No edema. ? Abdominal: No focal tenderness. Soft, no objective distension. No palpable masses or obvious organomegaly. ?No guarding, no rebound tenderness or other peritoneal findings. : No flank tenderness. Neuro: Alert. Gross movement of all extremities intact. ? Psych: Calm. Cooperative. MSK: No grossly visible deformity. Vital signs: See flowsheet Vital Signs: Vital Signs: Last Vital Signs Temp 97.8 F 02/21/25 11:21 Pulse 95 02/21/25 11:21 Resp 18 02/21/25 11:21 BP 155/79 H 02/21/25 11:21 Pulse Ox 95 02/21/25 11:21 O2 Del Method Room Air 02/21/25 11:21 BMI result Body Mass Index 25.8 Medical Decision Making Medical Decision Making MDM Narrative: Medical Decision Makin-year-old male with URI symptoms nasal congestion predominant mild intermittent gradual-onset headache with normal reassuring neurologic exam. Clear lungs reassuring ENT exam. Most likely suggestive of URI. COVID is negative could be another viral syndrome. Preliminary Favored Differential Diagnosis: URI, sinusitis, viral syndrome, dehydration among additional considered etiologies Testing Interpreted Independently: ?See below for details Radiology or Lab testing Results Reviewed: ?See below for details Consults: ?See below for details Independent Historians/External Chart Reviews: ?See below for details Social Determinants of Health Impacting MDM/Planning: ?See below for details Lab Data Labs: Lab Results 02/21/25 Range/Units 11:29 COVID-19 (DAISY) Negative (Negative) COVID-19 Clin Com See Note Discharge Plan Discharge Clinical Impression: Upper respiratory infection Patient Disposition: Home, Self-Care Instructions: Upper Respiratory Infection (ED) Additional Instructions: DISCHARGE DIAGNOSES: Likely viral syndrome/upper respiratory infection HISTORY OF PRESENTATION: ?Nasal congestion cough body aches joint aches headaches for about a week EMERGENCY DEPARTMENT COURSE,TESTS, TREATMENTS: While in the ED today reassuring physical examination performed including ears, throat, lungs and body examination. Negative COVID test DISCHARGE MEDICATIONS: ?No prescribed medications [id number] medications can be continued FOLLOW-UP: ?Call your primary or general physician soon as possible to discuss your symptoms, your ED visit and to discuss follow up plans Call your primary doctor for follow up INSTRUCTIONS ?& RETURN PRECAUTIONS: If any symptoms change first call your primary physician, if it is after-hours your primary doctors office should have a provider track production engineer you can speak with. If the symptoms are severe or very concerning to you then call 911 or return to the ED. [Return for severe or worsening headache, severe worsening cough shortness of breath developing. Oliver Galindo MD Emergency Physician [facility] Prescriptions: No Action ibuprofen 600 mg tablet 600 mg PO Q6H PRN (Reason: fever or pain) Qty: 30 0RF doxycycline hyclate 100 mg tablet 100 mg PO BID Qty: 20 0RF albuterol sulfate 90 mcg/actuation HFA aerosol inhaler 2 puff inhalation Q4-6H PRN (Reason: shortness of breath or wheezing) Qty: 6.7 0RF benzonatate 100 mg capsule 100 mg PO TID PRN (Reason: cough) Qty: 30 0RF azithromycin 250 mg tablet See Rx Instructions .ROUTE .COMPLEX Qty: 6 0RF Rx Instructions: For 250 mg dose pack: take 500 mg today (day 1), then 250 mg for 4 days (days 2-5) ibuprofen 600 mg tablet 600 mg PO Q6H PRN (Reason: pain) Qty: 30 0RF Print Language: Portuguese
[2025-02-21 11:56] LABS: Influenza B2 Negative (Negative)
[2025-02-21 12:10] VITALS: BP 155/79; PULSE 95; RESP 18; TEMP 36.6; O2SAT 95
== END 2025-02-21 12:14 | disposition home or self-care (01) ==
PROVIDERS: Physician Assistant Medical; Emergency Provider Emergency Medicine
DX: J06.9 Acute upper respiratory infection, unspecified (principal); R05.9 Cough, unspecified; R51.9 Headache, unspecified
CPT/HCPCS: 71046; 87502; 87635; 99282; 99283

== ENCOUNTER → 2025-02-21 11:23 | Outpatient (BNV) | payer OTHER, SELFPAY | PROVIDERS: Emergency Provider Emergency Medicine; Visit Provider Radiology Diagnostic Radiology | DX: R05.9 Cough, unspecified (principal) | CPT/HCPCS: 71046 ==

== ENCOUNTER 2025-04-17 14:14 | Outpatient (REF) | payer MEDICAID, SELFPAY ==
--- OUTSIDE RECORDS SUMMARY | 2025-04-17 13:15 | XMS_ITS | Encounter Summary ---
Author Organization [employer] Address [address] [facility] 7 [place] [address] Care Team Providers Care Steam Press Tender Name Role Phone Unavailable Primary Care Provider Unavailabl e Reason for Referral * Consultation (Routine) - Closed Specialty Diagnoses / Procedures Referred By Contac t Referred To Contact Behavioral Health Diagnoses Other depression Procedures Referral to Behavioral Health Meir Gama MD [address] [place] [phone] Phone: tel: fax: Referral ID Status Reason Start Date Expiration Date V isits Requested Visits Authorized [id number] Closed Specialty Services Required 04/17/2025 04/17/2026 1 1 * Consultation (Routine) - Authorized Specialty Diagnoses / Procedures Referred By Contac t Referred To Contact Dental Payroll Accounting Manager / Dentistry Diagnoses Screening examination for STI Meir Gama MD [address] [place] [phone] Phone: tel: fax: Referral ID Status Reason Start Date Expiration Date Visits Requested Visits Authorized [id number] Authorized Consult and Treat 04/17/2025 04/17/2026 1 1 * Consultation (Routine) - Pending Review Specialty Diagnoses / Procedures Referred By Contac t Referred To Contact Optometry Diagnoses Encounter to establish care Meir Gama MD [address] [place] [address] Phone: tel: fax: Referral ID Status Reason Start Date Expiration Date Visits Requested Visits Authorized [id number] Pending Review Specialty Services Required 04/17/2025 04/17/2026 1 1 * Consultation (Routine) - Authorized Specialty Diagnoses / Procedures Referred By Kasi owens Referred To Contact Diagnoses Housing insecurity Meir Gama MD [address] [place] [address] Phone: tel: fax: Referral ID Status Reason Start Date Expiration Date Visits Requested Visits Authorized [id number] Authorized Specialty Services Required 04/17/2025 04/17/2026 1 1 Encounter Details Date Type Department Care Team (Late st Contact Info) Description 04/17/2025 1:15 PM EST Office Visit [facility] [address], [place] [phone] Encounter to establish care (Primary Dx); Substance abuse (CMS/HCC) (HCC); Other depression; Housing insecurity; Screening examination for STI Social History Tobacco Use Types Packs/Day Years Used Date Smoking Tobacco: Some Days Cigarettes Passive Smoke Exposure: Current Smokeless Tobacco: Former Tobacco Cessation:Ready to Q uit: Not Asked; Counseling Given: Not Answered Alcohol Use Standard Drinks/Week Comments Yes 0 (1 standard drink = 0.6 oz pur e alcohol) Alcohol Answer Date Recorded Q1: How often do you have a drink containing alc ohol? 5 04/17/2025 Q2: How many drinks containi ng alcohol do you have on a typical day when you are drinking? 3 04/17/2025 Q3: How often do you have six or more drinks on one occasion? 5 04/17/2025 Depression Answer Date Recorded Patient Health Questionnaire-9 Score 21 04/17/2025 Patient Health Questionnaire-9 Score 21 04/17/2025 Last PHQ-9: Questionnaire Data Not on file 1 06/17/2024 Housing Stability Answer Date Recorded What is your housing situation today? I have housing today, but I am worried about losing housing in the future 04/17/[address] you li ve. Do you have problems with any of the following? I am not sure 04/17/2025 Food Insecurity Answer Date Recorded Within the past 12 months, y ou worried that your food would run out before you got money to buy more: Often true 04/17/2025 Within the past 12 months,th e food you bought just didn't last and you didn't have enough money to get more: Often true 12/2024 Transportation Answer Date Recorded In the past 12 months, has l ack of transportation kept you from medical appts, meetings, work or from getting things needed for daily living? I am not sure 04/17/2025 Utilities Answer Date Recorded In the past 12 months, has t he electric, gas, oil or water company threatened to shut off services in your home? I am not sure 04/17/2025 Depression Answer Date Recorded Patient Health Questionnaire-2 Score 6 04/17/2025 Internet Access Answer Date Recorded Internet Access Q1 I am not sure 04/17/2025 Internet Access Q2 Not on file 04/17/2025 Sex and Gender Information Value Date Recorded Sex Assigned at Male 04/16/2025 9:49 AM EST Legal Sex Male 9:04 AM EDT Gender Identity Male 04/16/2025 9:49 AM EST Sexual Orientation Straight 04/16/2025 9: 49 AM EST documented as of this encounter Last Filed Vital Signs Vital Sign Reading Time Taken Comments Blood Pressure 115/80 04/17/2025 1:19 PM EST Pulse 87 04/17/2025 1:19 PM EST Temperature 37.1 C (98.7 F) 04/17/2025 1:19 PM EST Respiratory Rate 17 04/17/2025 1:19 PM EST Oxygen Saturation 97% 04/17/2025 1:19 PM EST Inhaled Oxygen Concentration - - Weight 69.7 kg (153 lb 9.6 oz) 04/17/2025 1:19 P M EST Height 160 cm (5' 3 ) 04/17/2025 1:19 PM EST Body Mass Index 27.21 04/17/2025 1:19 PM EST documented in this encounter Functional Status * Audit-C Score Answer Date of Assessment Author 10 04/17/2025 1:21 PM Melissa Enrique MA * Question Answer Date of Assessment Author Q1: How often do you have a drink containing alcohol? 4 or more times a week 04/17/2025 1:21 PM Kingston Enrique MA Q2: How many drinks containing alcohol do you have on a typical day when you are drinking? 5 or 6 04/17/2025 1:21 PM Kingston Enrique MA Q3: How often do you have six or more drinks on one occasion? Daily or almost daily 04/17/2025 1:21 PM Kingston Enrique MA * Over the past 2 weeks, how often have you been bothered by any of the following problems? Question Answer Date of Assessment Author Patient Health Questionnaire -2 Score 6 04/17/2025 1:23 PM Kingston Enrique MA * Little interest or pleasure in doing things Answer Date of Assessment Author Nearly every day 04/17/2025 1:23 PM Kingston Enrique MA * Feeling down, depressed, or hopeless Answer Date of Assessment Author Nearly every day 04/17/2025 1:23 PM Kingston Enrique MA * Trouble falling or staying asleep, or sleeping too much Answer Date of Assessment Author Nearly every day 04/17/2025 1:23 PM Kingston Enrique MA * Feeling tired or having little energy Answer Date of Assessment Author Nearly every day 04/17/2025 1:23 PM Kingston Enrique MA * Poor appetite or overeating Answer Date of Assessment Author More than half the days 04/17/2025 1:23 PM Kingston Bird MA * Feeling bad about yourself - or that you are a failure or have let yourself or your family down Answer Date of Assessment Author Nearly every day 04/17/2025 1:23 PM Kingston Enrique MA * Trouble concentrating on things, such as reading the newspaper or watching television Answer Date of Assessment Author Nearly every day 04/17/2025 1:23 PM Kingston Enrique MA * Moving or speaking so slowly that other people could have noticed? Or the opposite - being so fidgety or restless that you have been moving around a lot more than usual. Answer Date of Assessment Author Not at all 04/17/2025 1:23 PM Melissa Enrique MA * Thoughts that you would be better off or hurting yourself in some way Answer Date of Assessment Author Several days 04/17/2025 1:23 PM Melissa Enrique MA * Patient Health Questionnaire-9 Score Answer Date of Assessment Author 21 04/17/2025 1:23 PM Melissa Enrique MA * How difficult have these problems made it for you to do your work, take care of things at home, or get along with other people? Answer Date of Assessment Author Very difficult 04/17/2025 1:23 PM Melissa Enrique MA * Over the last 2 weeks, how often have you been bothered by any of the following problems? Question Answer Date of Assessment Author Feeling nervous, anxious, or on edge 3 04/17/2025 1:22 PM Kingston Enrique MA Not being able to stop or co ntrol worrying 3 04/17/2025 1:22 PM Kingston Enrique MA Worrying too much about diff erent things 3 04/17/2025 1:22 PM Kingston Enrique MA Trouble relaxing 3 04/17/2025 1:22 PM Kingston Bird MA Being so restless that it is hard to sit still 0 04/17/2025 1:22 PM Kingston Enrique MA Becoming easily annoyed or irritable 3 04/17/2025 1:22 PM Kingston Enrique MA Feeling afraid as if somethi ng awful might happen 3 04/17/2025 1:22 PM Kingston Enrique MA SOTO-7 Total Score 18 04/17/2025 1:22 PM Kingston Enrique MA documented as of this encounter Plan of Treatment Upcoming Encounters Date Type Department Care Team (Late st Contact Info) Description 05/22/2025 3:00 PM EST Office Visit [facility] [address] [place] [address] Jose Chaidez FNP [address] [place] [address] Scheduled Orders Name Type Priority Associated Diagnoses Orde r Schedule CBC auto differential Lab Routine Encounter to establish care Expected: 04/17/2025 (Approximate), Expires: 04/17/2026 Comprehensive Metabolic Panel Lab Routine Encounter to establish care Expected: 04/17/2025 (Approximate), Expires: 04/17/2026 Lipid Panel, Standard Lab Routine Encounter to establish care Expected: 04/17/2025 (Approximate), Expires: 04/17/2026 Chlamydia/N. Gonorrhoeae, PCR, Urine Lab Routine Screening examination for STI Ordered: 04/17/2025 Hepatitis B surface antigen, EIA Lab Routine Screening examination for STI Expected: 04/17/2025 (Approximate), Expires: 04/17/2026 Hepatitis B Surface Antibody, Qualitative Lab Routine Screening examination for STI Expected: 04/17/2025 (Approximate), Expires: 04/17/2026 Hepatitis C Antibody with Reflex to HCV, RNA, Quantitative, Real-Time PCR Lab Routine Screening examination for STI Expected: 04/17/2025, Expires: 04/17/2026 Syphilis Screen Lab Routine Screening examination for STI Expected: 04/17/2025, Expires: 04/17/2026 HIV-1/2 Antigen and Antibodies, Fourth Generation, with Reflexes Lab Routine Screening examination for STI Expected: 04/17/2025 (Approximate), Expires: 04/17/2026 Scheduled Referrals Name Type Priority Associated Diagnoses Orde r Schedule Referral to Care Management Outpatient Referral Routine Housing insecurity Expected: 04/17/2025 (Approximate), Expires: 04/17/2026 Referral to Optometry Outpatient Referral Routine Encounter to establish care Expected: 04/17/2025 (Approximate), Expires: 04/17/2026 Referral to [facility] Dental Adult Outpatient Referral Routine Screening examination for STI Expected: 04/17/2025 (Approximate), Expires: 04/17/2026 documented as of this encounter Procedures Procedure Name Priority Date/Time Associated Diagnosis Comments POCT GLYCATED HEMOGLOBIN, TOTAL Routine 04/17/2025 2:10 PM EST Encounter to establish care POCT GLUCOSE Routine 04/17/2025 2:09 PM EST Encounter to establish care documented in this encounter Results * POCT Hgb A1c (04/17/2025 2:10 PM EST) Hemoglobin A1C 5.3 4.0 - 5.7 % QC Media Lot # [id number] Lot# Expiration Date [id number] Blood 04/17/2025 2:10 PM EST us Meir Gama MD POINT OF CARE TEST ENTER/EDIT OR DERABLES Final Result * POCT Glucose (04/17/2025 2:09 PM EST) Glucose Blood, POC 105 60 - 200 mg/dL QC Media Lot # [id number] Lot# Expiration Date 602 Blood Capillary blood specimen / Unknown 04/17/2025 2:09 PM EST us Meir Gama MD POINT OF CARE TEST ENTER/EDIT OR DERABLES Final Result documented in this encounter Visit Diagnoses Diagnosis Encounter to establish care- Primary Substance abuse (CMS/HCC) (HCC) Other, mixed, or unspecified nondependent drug abuse, unspecified Other depression Housing insecurity Screening examination for STI documented in this encounter Additional Health Concerns Assessment Noted Time PHQ-9 Depression Total Score: 21 025 1:23 PM EST documented as of this encounter
--- OUTSIDE RECORDS SUMMARY | 2025-04-17 15:59 | XMS_ITS | Encounter Summary ---
Author Organization [facility] Address [address] [place] [address] Phone Care Team Providers Care Air Conditioning Coil Assembler Name Role Phone Keli Hester MD Primary Care Provider Unavailabl e Encounter Details Date Type Department Care Team (Late st Contact Info) Description 01/25/2017 Conversion Encounter [facility] - [address] [address] Social History Tobacco Use Types Packs/Day Years [...] on filedocumented in this encounter Care Teams Air Conditioning Coil Assembler Relationship Specialty Start Date End Date Keli Hester MD PCP - General 01/19/17 documented as of this encounter
--- OUTSIDE RECORDS SUMMARY | 2025-04-17 15:59 | XMS_ITS | Clinical Summary ---
Author Organization [facility] Address [address] [place] [phone] Phone Care Team Providers Care Salon Receptionist Name Role Phone Keli Hester MD Primary [...] Vaccines (#1) 2025 05/19/2010 COVID-19 Vaccine ( - 2024- season) 2025 Hepatitis B Vaccines Completed 03/10/1993, [...] age to complete this topic Care Teams Salon Receptionist Relationship Specialty Start Date End Date Keli Hester MD PCP - General 01/19/17
--- OUTSIDE RECORDS SUMMARY | 2025-04-17 15:59 | XMS_ITS | Encounter Summary ---
Author Organization [employer] Address [address] [facility] [address] [place] [address] Care Team Providers Care Planer Feeder Name Role Phone Unavailable Primary Care Provider Unavailabl e Encounter Details Date Type Department Care Team (Latest Contact Info) Description 04/17/2025 Travel Social History Tobacco Use Types Packs/Day Years Used Date Smoking Tobacco: Some Days Cigarettes Passive Smoke Exposure: Current Smokeless Tobacco: Former Alcohol Use Standard Drinks/Week Comments Yes 0 [...] AM EST documented as of this encounter Functional Status * Audit-C Score [...] Description 05/22/2025 3:00 PM EST Office Visit [facility] [address] [place], [place] [phone] Jose Chaidez FNP [address] [place] [address] documented as of this encounter Visit Diagnoses Not on filedocumented in this encounter Additional Health Concerns Assessment Noted Time PHQ-9 Depression Total Score: 21 025 1:23 PM EST documented as of this encounter
--- OUTSIDE RECORDS SUMMARY | 2025-04-17 15:59 | XMS_ITS | Encounter Summary ---
Author Organization [employer] Address [address] [facility] [address] [place] [address] Care Team Providers Care Bench Precision Assembler Name Role Phone Unavailable Primary Care Provider Unavailabl e Reason for Visit * Reason Onset Date Comments chartprep 04/16/2025 Encounter Details Date Type Department Care Team (Late st Contact Info) Description 04/16/2025 Telephone [facility] [address] [place] [address] Deon Barreto MA chartprep Social History Tobacco Use Types Packs/Day Years Used Date Smoking Tobacco: Never Assessed Alcohol Answer Date Recorded Q1: How often [...] AM EST documented as of this encounter Miscellaneous Notes * Telephone Encounter - Deon Barreto MA - 04/16/2025 3:02 PM EST Chart Prep Labs: not applicable Images: not applicable Referrals: not applicable Vaccines due: Covid, Flu, Tdap, and HPV Screenings: family planing,alcohol/substance abuse,HIV screening,Hep C screening Overdue care gaps: SBIRT, SDOH, PHQ-9, SOTO-7, Oral health screening, Disability screen, and Tobacco documented in this encounter Plan of Treatment Upcoming Encounters Date Type Department Care Team (Late st Contact Info) Description 05/22/2025 3:00 PM EST Office Visit [facility] [address] [place] [address] Jose Chaidez FNP [address] [place] [address] documented as of this encounter Visit Diagnoses Not on filedocumented in this encounter
--- OUTSIDE RECORDS SUMMARY | 2025-04-17 15:59 | XMS_ITS | Clinical Summary ---
Author Organization [employer] Address [address] [facility] 7 [place] [address] Care Team Providers Care Pharmacy Benefits Coordinator Name Role Phone Unavailable Primary Care Provider Unavailabl e Allergies Active Allergy Reactions Criticality Noted Date Comments Cat Dander 04/17/2025 Encounters * This document contains information received from the source organization and may not represent a complete record from that organization. Date Type Department Care Team Description 04/17/2025 1:15 PM EST Office Visit [facility] [address] [place] [phone] Encounter to establish care (Primary Dx); Substance abuse (CMS/HCC) (HCC); Other depression; Housing insecurity; Screening examination for STI 04/17/2025 Travel 04/16/[address] [facility] [address] [place] [address] Deon Barreto [place] chartprep 03/16/[address] [facility] ENROLLMENT [address] [place], [place] [phone] Sury Wilkerson MD from Last 3 Months Immunizations Immunization Administration Dates Next Due DTP 02/08/1994, 3,1992,08/08 DTaP, 5 pertussis antigens 08/11/1997 Hep B, Adolescent or Pediatric 03/10/1993,1992,1992 Hib (PRP-T) 10/08/1993, 3,1992,08/08 IPV 08/11/1997, 4,1992,08/08 Influenza, Split (incl. eleanor fied surface antigen) 05/19/2010 MMR 08/08/1996,10/08/1993 Meningococcal MCV4P [id number] 04/05/2009 Novel [id number], all formulations 04/05/2009 TD (adult), 2 Lf tetanus tox oid, preservative free, adsorbed 04/22/2004 Tdap 04/05/2009 Social History Tobacco Use Types Packs/Day Years [...] Orientation Straight 04/16/2025 9: 49 AM EST Last Filed Vital Signs Vital Sign Reading [...] Mass Index 27.21 04/17/2025 1:19 PM EST Plan of Treatment Upcoming Encounters Date Type Department Care Team (Late st Contact Info) Description 05/22/2025 3:00 PM EST Office Visit [facility] [address] [place] [address] Jose Chaidez FNP [address] [place] [address] Health Maintenance Due Date Last Done Comments HIV Screening 1992 Lipid Panel 1992 Family Planning (PISQ) 2007 HPV Vaccines (1 - Male 3-dose series) 2007 Hepatitis C Screening 2010 Pneumococcal Vaccine: Pediatrics (0 to 5 Years) and At-Risk Patients (6 to 49) Years (1 of 2 - PCV) 2011 DTaP/Tdap/Td Vaccines (7 - Td or Tdap) 04/05/2019 04/05/2009, 04/22/2004, 08/11/1997, Additional history exists COVID-19 Vaccine (1 - season) 2025 Influenza Vaccine (#1) 2025 05/19/2010, 2008 Depression Monitoring 10/15/2025 04/17/2025, 025 Alcohol/Substance Use Screening 04/17/2026 04/17/2025 Disability Screening 04/17/2026 04/17/2025 SDOH Screening 04/17/2026 04/17/2025 Tobacco Screening 04/17/2026 04/17/2025 Zoster Vaccines (1 of 2) 2042 RSV Patients and Patients Aged 60 years or older (1 - 1-dose 75+ series) 2067 Hepatitis B Vaccines Completed 03/10/1993, 1992, 1992 HIB Vaccines Completed 10/08/1993, 10/11, 1992, Additional history exists IPV Vaccines Completed 08/11/1997, 01/11, 1992, Additional history exists Meningococcal Vaccine Completed 04/05/2009 Hepatitis A Vaccines Aged Out No long er eligible based on patient's age to complete this topic Meningococcal B Vaccine Aged Out No l onger eligible based on patient's age to complete this topic RSV under 20 months Aged Out No longe r eligible based on patient's age to complete this topic Rotavirus Vaccines Aged Out No longer eligible based on patient's age to complete this topic Procedures Procedure Name Priority Date/Time Associated Diagnosis Comments POCT GLYCATED HEMOGLOBIN, TOTAL Routine 04/17/2025 2:10 PM EST Encounter to establish care POCT GLUCOSE Routine 04/17/2025 2:09 PM EST Encounter to establish care from Last 3 Months Results * POCT Hgb A1c (04/17/2025 2:10 PM EST) Hemoglobin A1C 5.3 4.0 - 5.7 % QC Media Lot # [id number] Lot# Expiration Date [id number] Blood 04/17/2025 2:10 PM EST us Meir Name POINT OF CARE TEST ENTER/EDIT OR DERABLES Final Result * POCT Glucose (04/17/2025 2:09 PM EST) Glucose Blood, POC 105 60 - 200 mg/dL QC Media Lot # [id number] Lot# Expiration Date [id number] Blood Capillary blood specimen / Unknown 04/17/2025 2:09 PM EST us Meir Name POINT OF CARE TEST ENTER/EDIT OR DERABLES Final Result from Last 3 Months Insurance [facility] C3
[2025-04-17 16:17] LABS: MANUAL DIFF FLAG NO
[2025-04-17 16:25] LABS: Hematocrit 43.1 % (42.0-52.0); Hemoglobin 13.8 g/dl (14.0-18.0); Imm Gran Abs Auto 0.04 X10*3/uL (0.00-0.03); Imm Gran Pct Auto 0.4 % (0.0-0.4); Lymphocytes Absolute Auto 2.5 X10*3/uL (1.2-4.9); Mean Corpuscular HGB Conc 32.0 g/dl (31.0-36.0); Mean Corpuscular Hemoglobin 28.3 pg (27.0-33.0); Mean Corpuscular Volume 88.5 fL (80.0-98.0); NRBC Abs Auto 0.000 X10*3/uL (0.0-0.012); NRBC Pct Auto 0.0 /100WBC (0.0-0.2); Platelet Count 320 X10*3/uL (160-400); Red Blood Count 4.87 X10*6/uL (4.60-5.80); White Blood Count 10.2 X10*3/uL (4.8-10.8)
[2025-04-17 16:46] LABS: Alanine Aminotransferase 15 U/L (0-40); Albumin Level 4.5 g/dL (3.5-5.0); Alkaline Phosphatase 55 U/L (39-117); Anion Gap 12 (12-20); Aspartate Amino Transferase 27 U/L (5-37); Blood Urea Nitrogen 11 mg/dL (9-16); Calcium 9.3 mg/dL (8.4-10.2); Carbon Dioxide 25 mmol/L (22-29); Chloride 110 mmol/L (96-108); Cholesterol 162 mg/dL (<200); Estimated Glomerular Filt Rate > 60; HDL Cholesterol 56 mg/dL (>40); Potassium 4.4 mmol/L (3.3-5.1); Sodium 143 mmol/L (135-145); Total Protein 7.3 g/dL (6.5-8.0); Triglycerides 44 mg/dL (<150)
[2025-04-19 03:52] LABS: Syphilis Screen Nonreactive (Nonreactive)
[2025-04-19 04:47] LABS: HBS Num1 2.78 mIU/mL (0-7.99); HBsAGNum1 0.35 S/CO (0.00-0.99); HIV Num 1 0.06 S/CO (0.00-0.99); Hepatitis B Surface Antigen Negative (Negative); ~HepC Num1 0.06 S/CO (0.00-0.79); ~Hepatitis B Surface Antibody NONREACTIVE (Nonreactive); ~Hepatitis C Antibody Nonreactive (Nonreactive)
== END 2025-04-17 14:15 | disposition home or self-care (01) ==
LOC: HO.HHCL 14:14
PROVIDERS: PCP Internal Medicine Geriatric Medicine; Visit Provider Internal Medicine Geriatric Medicine
DX: Z11.59 Encounter for screening for other viral diseases (principal); Z11.4 Encounter for screening for human immunodeficiency virus [HIV]; Z11.3 Encounter for screening for infections with a predominantly sexual mode of transmission; Z76.89 Persons encountering health services in other specified circumstances
CPT/HCPCS: 36415; 80053; 80061; 85025; 86706; 86780; 86803; 87340; 87389

== ENCOUNTER 2025-05-22 15:53 | Outpatient (REF) | payer MEDICAID, SELFPAY ==
--- OUTSIDE RECORDS SUMMARY | 2025-05-22 20:34 | XMS_ITS | Encounter Summary ---
Author Organization [facility] Address [address] [place] [address] Phone Care Team Providers Care Aerial Installer Name Role Phone Keli Hester MD Primary Care Provider Unavailabl e Encounter Details Date Type Department Care Team (Late st Contact Info) Description 01/25/2017 Conversion Encounter [facility] - [address] [address] Social History Tobacco Use Types Packs/Day Years [...] on filedocumented in this encounter Care Teams Aerial Installer Relationship Specialty Start Date End Date Keli Hester MD PCP - General 01/19/17 documented as of this encounter
--- OUTSIDE RECORDS SUMMARY | 2025-05-22 20:34 | XMS_ITS | Clinical Summary ---
Author Organization [facility] Address [address] [place] [phone] Phone Care Team Providers Care Engineering Patternmaker Name Role Phone Keli Hester MD Primary [...] age to complete this topic Care Teams Engineering Patternmaker Relationship Specialty Start Date End Date Keli Hester MD PCP - General 01/19/17
[2025-05-23 07:41] LABS: Syphilis Screen Nonreactive (Nonreactive)
== END 2025-05-22 15:54 | disposition home or self-care (01) ==
LOC: HO.HHCL 15:53
PROVIDERS: PCP Internal Medicine Geriatric Medicine
DX: Z11.3 Encounter for screening for infections with a predominantly sexual mode of transmission (principal); N48.9 Disorder of penis, unspecified
CPT/HCPCS: 36415; 86780; 87255

== ENCOUNTER 2025-05-26 13:23 | Outpatient (REF) | payer MEDICAID, SELFPAY ==
--- OUTSIDE RECORDS SUMMARY | 2025-05-22 15:00 | XMS_ITS | Encounter Summary ---
Author Organization [employer] Address [address] [facility] 7[address] [place] [address] Care Team Providers Care Technology Training Associate Name Role Phone Natalie Barnes RN Unavailable [phone] Jojo Gamboa Unavailable Jose Chaidez Primary Care Provider [phone] Reason for Referral * Consultation (Routine) - Canceled Specialty Diagnoses / Procedures Referred By Kasi owens Referred To Contact Urology Diagnoses Phimosis Scrotal cyst Jose Chaidez FNP [address] [place] [address] Phone: tel: fax: Referral ID Status Reason Start Date Expiration Date Visits Requested Visits Authorized [id number] Canceled Specialty Services Required 05/22/2025 05/22/2026 1 1 Reason for Visit * Reason Comments Follow-up Encounter Details Date Type Department Care Team ([facility] st Contact Info) Description 05/22/2025 3:00 PM EST Office Visit [facility] [address] [place] [phone] Jose Chaidez FNP [address] [place] [address] Encounter for immunization (Primary Dx); Substance abuse (CMS/HCC) (HCC); Housing insecurity; Anxiety and depression; Anal fissure; Phimosis; Lesion of penis; Scrotal cyst; Grade IV hemorrhoids Social History Tobacco Use Types Packs/Day Years [...] Answer Date Recorded Patient Health Questionnaire-9 Score 19 05/12/2025 Patient Health Questionnaire-9 Score 19 05/12/2025 Last PHQ-9: Questionnaire Data Not on file 1 07/13/2024 Housing Stability Answer Date Recorded What is [...] Answer Date Recorded Patient Health Questionnaire-2 Score 5 05/12/2025 Internet Access Answer Date Recorded Internet Access [...] Sign Reading Time Taken Comments Blood Pressure 140/69 05/22/2025 2:54 PM EST Pulse 87 05/22/2025 2:54 PM EST Temperature 36.7 C (98.1 F) 05/22/2025 2:54 PM EST Respiratory Rate 20 05/22/2025 2:54 PM EST Oxygen Saturation 98% 05/22/2025 2:54 PM EST Inhaled Oxygen Concentration - - Weight 67.8 kg (149 lb 6.4 oz) 05/22/2025 2:54 P M EST Height 161.3 cm (5' 3.5 ) 05/22/2025 2:54 PM EST Body Mass Index 26.05 05/22/2025 2:54 PM EST documented in this encounter Progress Notes * Jose Chaidez, MEHNAZ - 05/22/2025 3:00 PM EST Images from the original note were not included. Ti Ledesma is a 34 y.o. male who presents for a follow up visit. Last seen 04/21/25; saw 04/22/28 for depression anxiety; referred to Care Management for Home Insecurity. Issues to be addressed today: Depression / Anxiety - Continue with - Referral to [facility] for psychiatry. - Possible antidepressant medication - Cocaine / MJ use cessation Home Insecurity - Care Management Foreskin Issue Possible Anal Fissure HPI Phimosis and Penile Symptoms - Difficulty retracting foreskin for over 2 years, described as painful when attempting retraction - Foreskin appears tight and binding, with episodes of over-yanking - Reports darker coloration at the tip of the foreskin - Noted boston resembling stretch boston from prior trauma or stretching - Recent episode of friction injury during sex without lubrication, resulting in live skin appearance and sticking sensation at the glans - Underwear causes discomfort - Denies regular pain, describes pain as acute when present - History of negative syphilis test - No history of herpes lesions reported - Reports prior ultrasound of scrotal area 6-7 months ago at [facility] Scrotal Mass - Reports a mass in the scrotum, described as the third largest cyst experienced - History of multiple hospital visits for cysts - Current scrotal mass described as largest present cyst - Mass located on the right side Hemorrhoids and Anorectal Symptoms - Reports pain in the anus, described as sharp and internal, not associated with defecation - Occasional blood on toilet paper after wiping - History of external hemorrhoid for approximately 12 years, previously thought to have resolved - Describes sensation of something about to come out, but no associated abdominal pain - Reports frequent need to push during bowel movements (80% of the time) - Anal itching and irritation after wiping Mood Symptoms - Reports mood fluctuations described as like a quick bipolar switch between depression and normal mood - Experiences episodes of frustration and anger, able to calm down with effort - Describes brain fog upon waking, lasting up to 4 hours each morning - Denies current persistent depression or anxiety - Uncertain if symptoms require medication, considering options between antidepressant or motivator - Reports difficulty distinguishing between sadness and suppression, and feeling stuck in negative emotions Misc - Reports current blood pressure concerns, with prior high readings Problem List[1] Allergies[2] Review of Systems Constitutional: Negative. Negative for fatigue and fever. HENT: Negative. Negative for congestion, dental problem, ear pain, rhinorrhea, sinus pressure, sinus pain, sore throat and tinnitus. Eyes: Negative. Respiratory: Negative. Negative for cough, chest tightness, shortness of breath and wheezing. Cardiovascular: Negative for chest pain and leg swelling. Gastrointestinal: Negative for abdominal pain, blood in stool, constipation, diarrhea, nausea and vomiting. Endocrine: Negative. Negative for polydipsia, polyphagia and polyuria. Genitourinary: Negative. Negative for decreased urine volume, difficulty urinating, frequency, hematuria, testicular pain and urgency. Musculoskeletal: Negative. Negative for back pain, joint swelling and neck pain. Skin: Negative. Negative for pallor and rash. Allergic/Immunologic: Negative. Neurological: Negative for dizziness, tremors, syncope, weakness and headaches. Hematological: Negative. Psychiatric/Behavioral: Negative. Negative for agitation, confusion, self- injury, sleep disturbanceand suicidal ideas. The patient is not nervous/anxious. Vitals: 05/22/25 1454 BP: (!) 140/69 BP Location: Right arm Patient Position: Sitting BP Cuff Size: Adult Pulse: 87 Resp: 20 Temp: 98.1 ??F (36.7 ??C) TempSrc: Oral SpO2: 98% Weight: 149 lb 6.4 oz (67.8 kg) Height: 5' 3.5 (1.613 m) Physical Exam Exam conducted with a nurse healthcare manager present. Constitutional: Appearance: Normal appearance. He is obese. HENT: Head: Normocephalic. Right Ear: Tympanic membrane, ear canal and external ear normal. Left Ear: Tympanic membrane, ear canal and external ear normal. Nose: Nose normal. Mouth/Throat: Mouth: Mucous membranes are moist. Pharynx: Oropharynx is clear. Eyes: Extraocular Movements: Extraocular movements intact. Pupils: Pupils are equal, round, and reactive to light. Cardiovascular: Rate and Rhythm: Normal rate and regular rhythm. Pulses: Normal pulses. Heart sounds: Normal heart sounds. No murmur heard. No gallop. Pulmonary: Effort: Pulmonary effort is normal. Breath sounds: Normal breath sounds. No stridor. No wheezing or rhonchi. Abdominal: General: Bowel sounds are normal. There is no distension. Palpations: Abdomen is soft. There is no mass. Tenderness: There is no abdominal tenderness. There is no right CVA tenderness, left CVA tendernessor guarding. Hernia: No hernia is present. There is no hernia in the left inguinal area or right inguinal area. Genitourinary: Penis: Uncircumcised. Phimosis and lesions present. Testes: Right: Mass present. Comments: Red area represents superficial ulceration of glands of penis; no discharge; Phimosis present; foreskin retractable with difficulty, scarring present. Red pit river represents location of testicular mass or cyst. Tag-like hemorrhoid present at the 11 O'clock position of the anus. Musculoskeletal: General: Normal range of motion. Cervical back: Normal range of motion and neck supple. Skin: General: Skin is warm. Capillary Refill: Capillary refill takes less than 2 seconds. Neurological: General: No focal deficit present. Mental Status: He is alert and oriented to person, place, and time. Cranial Nerves: No cranial nerve deficit. Sensory: No sensory deficit. Motor: No weakness. Psychiatric: Mood and Affect: Mood normal. Behavior: Behavior normal. Assessment & Plan Encounter for immunization Deferred to next visit. Substance abuse (CMS/HCC) (HCC) Not addressed today; continue with . Housing insecurity Pt met with Care Management; feels they are assisting him. Anxiety and depression - Continue talking to behavioral health professionals. Appointment with a psychiatrist scheduled for Sunday at 10 AM to discuss potential medication options. Anal fissure On exam, turned out to be tag-like hemorrhoid. Prescribed psyllium. Phimosis - Phimosis confirmed, characterized by tight and binding foreskin. - Referral to a urologist for further evaluation and management. Discussed potential use of steroidointment for inflammation relief, but noted it is not a long-term solution. Orders: Referral to Urology; Future Lesion of penis - Culture of the lesion to rule out herpes and other infections. Referral to a urologist for further evaluation. Orders: Herpes Simple Virus Culture; Future Syphilis Screen; Future Scrotal cyst - Referral to a urologist for evaluation of the scrotal cyst. Orders: Referral to Urology; Future Grade IV hemorrhoids - Grade IV hemorrhoids identified. - Recommended conservative treatment with increased dietary fiber and hydration to ease bowel movements. Prescribed sodium Metamucil to aid in bowel regularity. Orders: psyllium (Metamucil Smooth Texture) 58.6 % powder; Take 5.12 g (3 g of fiber) by mouth 2 times daily. Current Medications[3] Follow up in about 4 weeks (around 06/19/2025) for Review labs, Psych and visits, Urology visit. [facility] BISQUE FINISHER Attestation BISQUE FINISHER Resident Attestation: Patient was seen and evaluated by MEHNAZ Bhakta, in collaboration with Meir Gama MD who has reviewed my assessment and plan. I, Meir Gama MD , have reviewed the resident's note and agree with the assessment & plan of care as documented above. This note was drafted using Ambient (AI) technology. The patient/patient's guardian has been informed and has consented to the use of this technology: Yes [1] Patient Active Problem List Diagnosis Moderate major depression (CMS/HCC) ([facility]) Anxiety and depression Alcohol use Substance abuse (CMS/HCC) ([facility]) Housing insecurity [2] Allergies Allergen Reactions Cats [Cat Dander] [3] Current Outpatient Medications: psyllium (Metamucil Smooth Texture) 58.6 % powder, Take 5.12 g (3 g of fiber) by mouth 2 times daily., Disp: 283 g, Rfl: 11 documented in this encounter Miscellaneous Notes * Assessment & Plan Note - MEHNAZ Bhakta - 05/22/2025 3:00 PM EST Associated Problem(s): Substance abuse (CMS/HCC) ([facility]) Not addressed today; continue with . * Assessment & Plan Note - MEHNAZ Bhakta - 05/22/2025 3:00 PM EST Associated Problem(s): Housing insecurity Pt met with Care Management; feels they are assisting him. * Assessment & Plan Note - MEHNAZ Bhakta - 05/22/2025 3:00 PM EST Associated Problem(s): Anxiety and depression - Continue talking to behavioral health professionals. Appointment with a psychiatrist scheduled for Sunday at 10 AM to discuss potential medication options. documented in this encounter Plan of Treatment Upcoming Encounters Date Type Department Care Team (Late st Contact Info) Description 05/28/2025 1:00 PM EST Nurse Only [facility] [address] [place] [phone] 06/26/2025 2:30 PM EST Office Visit [facility] [address] [place] [phone] Jose Chaidez FNP [address] [place] [address] Scheduled Orders Name Type Priority Associated Diagnoses Orde r Schedule Herpes Simple Virus Culture Microbiology Routine Lesion of penis Expected: 05/22/2025 (Approximate), Expires: 05/22/2026 Scheduled Referrals Name Type Priority Associated Diagnoses Orde r Schedule Referral to Urology Outpatient Referral Routine Phimosis Scrotal cyst Expected: 05/22/2025 (Approximate), Expires: 05/22/2026 documented as of this encounter Procedures Procedure Name Priority Date/Time Associated Diagnosis Comments SYPHILIS SCREEN Routine 05/22/2025 3:56 PM EST Lesion of penis documented in this encounter Results * Syphilis Screen (05/22/2025 3:56 PM EST) Syphilis Screen Nonreactive Nonreactive [facility] Blood 05/22/2025 3:56 PM EST 05/22/2025 5:30 PM EST us Jose DARBY LAB BLOOD ORDERABLES Final Re sult [facility] [address] [place] [address] [phone] documented in this encounter Visit Diagnoses Diagnosis Encounter for immunization- Primary Substance abuse (CMS/HCC) (HCC) Other, mixed, or unspecified nondependent drug abuse, unspecified Housing insecurity Anxiety and depression Anal fissure Phimosis Redundant prepuce and phimosis Lesion of penis Other specified disorder of penis Scrotal cyst Grade IV hemorrhoids documented in this encounter Additional Health Concerns Assessment Noted Time PHQ-9 Depression Total Score: 19 025 10:59 AM EST documented as of this encounter Care Teams Technology Training Associate Relationship Specialty Start Date End Date Jose Chaidez FNP [address] [place] [address] PCP - General Family Medicine 04/30/25 Natalie Barnes RN [address] [place] [phone] Registered Nurse Family Medicine 04/21/25 Jojo Gamboa 04/21/25 documented as of this encounter
--- NOTE | ~2025-05-26 | US_ITS ---
EXAMINATION: US SCROTUM HISTORY: Testicular Mass right. COMPARISON: There are no prior studies available for comparison. FINDINGS: Real-time grayscale ultrasound imaging of the scrotum was performed. RIGHT TESTICLE: The right testis measures 4.7 x 2.0 x 3.2 cm and demonstrates normal homogeneous echotexture. There is microlithiasis. No masses are seen. The right testis demonstrates normal color Doppler flow. 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 LEFT TESTICLE: The left testis measures 4.3 x 1.8 x 3.1 cm and demonstrates normal homogeneous echotexture. There is microlithiasis. No masses are seen. The left testis demonstrates normal color Doppler flow. LEFT EPIDIDYMIS: Normal in size, shape, and vascularity. VARICOCELE: None. HYDROCELE: No significant hydrocele is seen. OTHER COMMENTS: None. 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 Urologic consultation is recommended. Electronically signed by: Santos Gonzalez MD 05/26/2025 02:[address] [facility]
--- OUTSIDE RECORDS SUMMARY | 2025-05-26 17:26 | XMS_ITS | Encounter Summary ---
Author Organization [employer] Address [address] [facility] 7t [place] [address] Care Team Providers Care Hose Sprayer Name Role Phone Natalie Barnes RN Unavailable [phone] Jojo Gamboa Unavailable Jose Chaidez Primary Care Provider [phone] Reason for Referral * Imaging (STAT) - Authorized Specialty Diagnoses / Procedures Referred By Contac t Referred To Contact Radiology Diagnoses Testicular mass Procedures US Scrotum Jose Chaidez FNP [address] [place] [address] Phone: tel: fax: [address] [address] Phone: tel: fax: Referral ID Status Reason Start Date Expiration Date V isits Requested Visits Authorized [id number] Authorized 05/25/2025 05/25/2026 1 1 Encounter Details Date Type Department Care Team (Late st Contact Info) Description 05/25/2025 Orders Only [facility] [address] [place] [address] Jose Chaidez FNP [address] [place] [address] Testicular mass (Primary Dx) Social History Tobacco Use Types Packs/Day Years [...] AM EST documented as of this encounter Progress Notes * Jose Chaidez, MATERIAL CREW SUPERVISOR - 05/25/2025 8:49 AM EST US for testicular mass needed prior to Urology referral. documented in this encounter Plan of Treatment Upcoming Encounters Date Type Department Care Team (Late st Contact Info) Description 05/28/2025 1:00 PM EST Nurse Only [facility] [address] [place] [phone] 06/26/2025 2:30 PM EST Office Visit [facility] [address] [place] [address] [phone] Jose Chaidez FNP [address] [place] [address] [phone] documented as of this encounter Procedures Procedure Name Priority Date/Time Associated Diagnosis Comments US SCROTUM STAT 05/26/2025 1:41 PM EST Testicular mass documented in this encounter Results * US Scrotum (05/26/2025 1:41 PM EST) Anatomical Region Laterality Modality Body Ultrasound 05/26/2025 1:41 PM EST Narrative 05/26/2025 2:18 PM EST [address] [address] Ultrasound Report Signed Patient: Ti Ledesma MR#: [id number] : 1990 Acct:[id number] Age/Sex: 34 / M ADM Date: 05/26/25 Loc: HO.US Attending Dr: Jose Chaidez NP Ordering Physician: Joes Chaidez NP Date of Service: 05/26/25 Procedure(s): US scrotum Accession Number(s): [id number] cc: Jose Chaidez DEBRANDER; Name,Meir ROSALES Reason for Exam: Testicular Mass right EXAMINATION: US SCROTUM HISTORY: Testicular Mass right. COMPARISON: There are no prior studies available for comparison. FINDINGS: Real-time grayscale ultrasound imaging of the scrotum was performed. RIGHT TESTICLE: The right testis measures 4.7 x 2.0 x 3.2 cm and demonstrates normal homogeneous echotexture. There is microlithiasis. No masses are seen. The right testis demonstrates normal color Doppler flow. 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 LEFT TESTICLE: The left testis measures 4.3 x 1.8 x 3.1 cm and demonstrates normal homogeneous echotexture. There is microlithiasis. No masses are seen. The left testis demonstrates normal color Doppler flow. LEFT EPIDIDYMIS: Normal in size, shape, and vascularity. VARICOCELE: None. HYDROCELE: No significant hydrocele is seen. OTHER COMMENTS: None. 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 Urologic consultation is recommended. Electronically signed by: Santos Gonzalez MD 05/26/2025 02:16 PM [facility] Dictated By: Santos Gonzalez MD Signed By: <Electronically signed by Santos Gonzalez MD in OV> 05/26/25 1416 DD/ 1341 TD/TT: 05/26/25 1357 Sand Temperer: Procedure Note Donotuseinterpreter, Image - 05/26/2025 [place] [address] Ultrasound Report Signed Patient: Ti Ledesma#: [id number] : 1990Acct:[id number] Age/Sex: 34 / MADM Date: 05/26/25 Loc: HO.US Attending Dr: Jose Chaidez NP Ordering Physician: Jose Chaidez NP Date of Service: 05/26/25 Procedure(s): US scrotum Accession Number(s): [id number] cc: Jose Chaidez NP; Name,Meir ROSALES Reason for Exam: Testicular Mass right EXAMINATION: US SCROTUM HISTORY: Testicular Mass right. COMPARISON: There are no prior studies available for comparison. FINDINGS: Real-time grayscale ultrasound imaging of the scrotum was performed. RIGHT TESTICLE: The right testis measures 4.7 x 2.0 x 3.2 cm and demonstrates normal homogeneous echotexture. There is microlithiasis. No masses are seen. The right testis demonstrates normal color Doppler flow. 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 LEFT TESTICLE: The left testis measures 4.3 x 1.8 x 3.1 cm and demonstrates normal homogeneous echotexture. There is microlithiasis. No masses are seen. The left testis demonstrates normal color Doppler flow. LEFT EPIDIDYMIS: Normal in size, shape, and vascularity. VARICOCELE: None. HYDROCELE: No significant hydrocele is seen. OTHER COMMENTS: None. 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 Urologic consultation is recommended. Electronically signed by: Santos Gonzalez MD 05/26/2025 02:16 PM EST Dictated By: Santos Gonzalez MD Signed By: <Electronically signed by Santos Gonzalez MD in OV> 05/26/25 1416 DD/ 1341 TD/TT: 05/26/25 1357 Sand Temperer: Jose DARBY [facility] US PROCEDURES Edited Resu lt - Final documented in this encounter Visit Diagnoses Diagnosis Testicular mass- Primary Other specified disorder of male genital organs documented in this encounter Additional Health Concerns Assessment Noted Time PHQ-9 Depression Total Score: 19 025 10:59 AM EST documented as of this encounter Care Teams Hose Sprayer Relationship Specialty Start Date End Date Jose Chaidez FNP [address] [place] [phone] PCP - General Family Medicine 04/30/25 Natalie Barnes RN [address] [place] [phone] Registered Nurse Family Medicine 04/21/25 Jojo Gamboa 04/21/25 documented as of this encounter
--- OUTSIDE RECORDS SUMMARY | 2025-05-26 17:26 | XMS_ITS | Encounter Summary ---
Author Organization [employer] Address [address] [facility] [address]t [place] [address] Care Team Providers Care Squad Boss Name Role Phone Natalie Barnes RN Unavailable [phone] Jojo Gamboa Unavailable Joes Chaidez Primary Care Provider [phone] Reason for Visit * Reason Comments Care Coordination C3 Wilmer lopez telephone call outreach Encounter Details Date Type Department Care Team (Latest Contact Info) Description 05/21/2025 Patient Outreach [facility] [address] [place] [address] oJse Chaidez FNP [address] [place] [address] Care Coordination (C3 Wilmer Gamboa telephone call outreach) Social History Tobacco Use Types Packs/Day Years [...] as of this encounter Progress Notes * Jojo Gamboa - 05/21/2025 12:36 PM EST CHW Jojo Gamboa submitted transportation to [facility] 05/22/25 @ 3:00 pm, greens picker at 2:30 pm. documented in this encounter Plan of Treatment Upcoming Encounters Date Type Department Care Team (Late st Contact Info) Description 05/28/2025 1:00 PM EST Nurse Only [facility] [address] [place] [phone] 06/26/2025 2:30 PM EST Office Visit [facility] [address] [place] [phone] ChaidezJose johnson FNP [address] [place] [address] documented as of this encounter Visit Diagnoses Not on filedocumented in this encounter Additional Health Concerns Assessment Noted Time PHQ-9 Depression Total Score: 19 025 10:59 AM EST documented as of this encounter Care Teams Squad Boss Relationship Specialty Start Date End Date Jose Chaidez FNP [address] [place] [address] PCP - General Family Medicine 04/30/25 Natalie Barnes RN [address] [place] [phone] Registered Nurse Family Medicine 04/21/25 Jojo Gamboa 04/21/25 documented as of this encounter
--- OUTSIDE RECORDS SUMMARY | 2025-05-26 17:26 | XMS_ITS | Encounter Summary ---
Author Organization [employer] Address [address] [place] [address] Care Team Providers Care Delivery Crew Member Name Role Phone Natalie Barnes RN Unavailable [phone] Jojo Gamboa Unavailable Jose Chaidez Primary Care Provider [phone] Encounter Details Date Type Department Care Team (Latest Contact Info) Description 05/22/2025 Travel Social History Tobacco Use Types Packs/Day [...] AM EST documented as of this encounter Plan of Treatment Upcoming Encounters Date Type Department Care Team (Late st Contact Info) Description 05/28/2025 1:00 PM EST Nurse Only [facility] [address] [place] [phone] 06/26/2025 2:30 PM EST Office Visit [facility] [address] [place] [phone] Jose Chaidez FNP [address] [place] [address] documented as of this encounter Visit Diagnoses Not on filedocumented in this encounter Additional Health Concerns Assessment Noted Time PHQ-9 Depression Total Score: 19 025 10:59 AM EST documented as of this encounter Care Teams Delivery Crew Member Relationship Specialty Start Date End Date Jose Chaidez FNP [address] [place] [phone] PCP - General Family Medicine 04/30/25 Natalie Barnes RN [address] [place] [phone] Registered Nurse Family Medicine 04/21/25 Jojo Gamboa 04/21/25 documented as of this encounter
--- OUTSIDE RECORDS SUMMARY | 2025-05-26 17:26 | XMS_ITS | Clinical Summary ---
Author Organization [employer] Address [address] 7[address] [place] [address] Care Team Providers Care Inspector Filters Name Role Phone Natalie Barnes RN Unavailable [phone] Jojo Gamboa Unavailable Jose Chaidez Primary Care Provider [phone] Allergies Active Allergy Reactions Criticality Noted Date Comments Cat Dander 04/17/2025 Medications * This document contains information received from the source organization and may not represent a complete record from that organization. psyllium (Metamucil Smooth Texture) 58.6 % powderIndications :Grade IV hemorrhoids Take 5.12 g (3 g of fiber) by mouth 2 times daily. 283 g 11 05/22/2025 6 Active Active Problems Problem Noted Date Diagnosed Date Housing insecurity 05/22/2025 Assessment & Plan (05/22/2025 4:08 PM EST): Pt met with Care Management; feels they are assisting him. Moderate major depression (CMS/HCC) 04/20/2025 Anxiety and depression 04/20/2025 Assessment & Plan (05/22/2025 4:08 PM EST): - Continue talking to behavioral health professionals. Appointment with a psychiatrist scheduled for Sunday at 10 AM to discuss potential medication options. Alcohol use 04/20/2025 Substance abuse (CMS/HCC) 04/20/2025 Assessment & Plan (05/22/2025 4:08 PM EST): Not addressed today; continue with BH. Encounters * This document contains information received from the source organization and may not represent a complete record from that organization. Date Type Department Care Team Description 05/25/2025 Orders Only [place] [address] Jose Chaidez FNP Testicular mass (Primary Dx) 05/22/2025 3:00 PM EST Office Visit [facility] [place] [address] Jose Chaidez FNP Encounter for immunization (Primary Dx); Substance abuse (CMS/HCC) (HCC); Housing insecurity; Anxiety and depression; Anal fissure; Phimosis; Lesion of penis; Scrotal cyst; Grade IV hemorrhoids 05/22/2025 Orders Only [address] [address] Jose Chaidez FNP 05/22/2025 Travel 05/21/[address] [address] Radha Ramirez MA chart prep 05/21/2025 Patient Outreach [address] [address] Jose Chaidez FNP Care Coordination (C3 Cm-[facility] Jojo Gamboa telephone call outreach) 05/21/2025 Patient Outreach [address] [address] Jose Chaidez FNP Care Management (C3CM- FOLLOW UP CALL ) 05/18/2025 Patient Outreach [address] [address] Jose Chaidez FNP 05/13/2025 Population Health Risk Score [facility] ([facility] Department [address] [place] [phone] Provider, Population Health Generic 05/12/2025 Plan of Care Documentation [address] [address] 05/12/2025 Plan of Care Documentation [address] [address] 05/12/2025 Patient Outreach [address] [address] Jose Chaidez FNP Care Management (C3 COMPLEX INITIAL ASSESSMENT/ ENROLLMENT ) 04/30/2025 Patient Outreach [address] [address] Jose Chaidez FNP Care Coordination (C3 -[facility] Jojo Gamboa telephone call outreach ) 04/27/2025 1:00 PM EST Nurse Only [address] [address] Wanda Fuentes, SWEETIE Encounter for immunization 04/27/2025 Travel 04/22/2025 Patient Outreach [address] [address] Jose Chaidez FNP Care Coordination (C3 -[facility] Jojo Gamboa chart review) 04/21/2025 Results Follow-Up [address] [address] Jose Chaidez FNP POCT Glucose, POCT Hgb A1c, CBC auto differential, Additional followed-up results: 7 04/21/2025 Patient Outreach [address] [address] Natalie Barnes, SWEETIE Care Management (C3 -CHART REVIEW/) 04/21/2025 Patient Outreach [address] [address] Tarah Becerra, SWEETIE 04/17/2025 1:15 PM EST Office Visit [address] [address] Jose Chaidez FNP Encounter to establish care (Primary Dx); Substance abuse (CMS/HCC) (HCC); Other depression; Housing insecurity; Screening examination for STI 04/17/2025 Travel 04/16/2025 Telephone [facility] [address] [place] [address] Deon Barreto MA chartprep 03/16/2025 Telephone [facility] INS ENROLLMENT [address] [place] [address] Sury Wilkerson MD from Last 3 Months Immunizations Immunization Administration Dates Next Due DTP 02/08/1994, 3,1992,08/08 DTaP, 5 pertussis antigens 08/11/1997 Hep B, Adolescent or Pediatric 03/10/1993,1992,1992 HepB-CpG 04/27/2025 Hib (PRP-T) 10/08/1993, 3,1992,08/08 IPV 08/11/1997, 4,1992,08/08 Influenza, Split (incl. eleanor fied surface antigen) 05/19/2010 MMR 08/08/1996,10/08/1993 Meningococcal MCV4P [id number]-135 04/05/2009 Novel [id number], all formulations 04/05/2009 TD (adult), 2 Lf [...] Mass Index 26.05 05/22/2025 2:54 PM EST Plan of Treatment Upcoming Encounters Date Type Department Care Team (Late st Contact Info) Description 05/28/2025 1:00 PM EST Nurse Only [facility] [address] [place] [address] 06/26/2025 2:30 PM EST Office Visit [facility] [address] [place] [address] Jose Chaidez FNP [address] [place] [address] Health Maintenance Due Date Last Done Comments Family Planning (PISQ) 2007 HPV Vaccines (1 - Male 3-dose series) 2007 Pneumococcal Vaccine: Pediatrics (0 to 5 Years) and At-Risk Patients (6 to 49) Years (1 of 2 - PCV) 2011 DTaP/Tdap/Td Vaccines (7 - Td or Tdap) 04/05/2019 04/05/2009, 04/22/2004, 08/11/1997, Additional history exists COVID-19 Vaccine (1 - season) 2025 Influenza Vaccine (#1) 2025 05/19/2010, 2008 Depression Monitoring 11/10/2025 05/12/2025, 025 Disability Screening 04/17/2026 04/17/2025 SDOH Screening 04/17/2026 04/17/2025 Alcohol/Substance Use Screening 04/20/2026 04/20/2025 Tobacco Screening 05/22/2026 05/22/2025 Lipid Panel 04/17/2030 04/17/2025 Zoster Vaccines (1 of 2) 2042 RSV Patients and Patients Aged 60 years or older (1 - 1-dose 75+ series) 2067 HIB Vaccines Completed 10/08/1993, 10/11, 1992, Additional history exists IPV Vaccines Completed 08/11/1997, 01/11, 1992, Additional history exists Meningococcal Vaccine Completed 04/05/2009 HIV Screening Completed 04/17/2025 Hepatitis C Screening Completed 04/17/2025 Hepatitis B Vaccines Completed 04/27/2025, 03/10/1993, 1992, Additional history exists Hepatitis A Vaccines Aged Out No long [...] STAT 05/26/2025 1:41 PM EST Testicular mass SYPHILIS SCREEN Routine 05/22/2025 3:56 PM EST Lesion of penis HERPES SIMPLEX VIRUS CULTURE Routine 05/22/2025 3:40 PM EST HIV 1/2 ANTIGEN/ANTIBODY, FOURTH GENERATION W/RFL Routine 04/17/2025 2:18 PM EST Screening examination for STI SYPHILIS SCREEN Routine 04/17/2025 2:18 PM EST Screening examination for STI HEPATITIS C AB W/REFL TO HCV RNA, QN, PCR Routine 04/17/2025 2:18 PM EST Screening examination for STI HEPATITIS B SURFACE ANTIBODY, QUALITATIVE Routine 04/17/2025 2:18 PM EST Screening examination for STI HEPATITIS B SURFACE ANTIGEN, EIA Routine 04/17/2025 2:18 PM EST Screening examination for STI LIPID PANEL, STANDARD Routine 04/17/2025 2:18 PM EST Encounter to establish care COMPREHENSIVE METABOLIC PANEL Routine 04/17/2025 2:18 PM EST Encounter to establish care CBC WITH AUTO DIFFERENTIAL Routine 04/17/2025 2:18 PM EST Encounter to establish care POCT GLYCATED HEMOGLOBIN, TOTAL Routine 04/17/2025 2:10 PM EST Encounter to establish care POCT GLUCOSE Routine 04/17/2025 2:09 PM EST Encounter to establish care from Last 3 Months Results * US Scrotum (05/26/2025 1:41 PM EST) Anatomical Region Laterality Modality Body Ultrasound 05/26/2025 1:41 PM EST Narrative 05/26/2025 2:18 PM EST [address] [address] Ultrasound Report Signed Patient: Ti Ledesma MR#: [id number] : 1990 Acct:[id number] Age/Sex: 34 / M ADM Date: 05/26/25 Loc: . Attending Dr: Jose Chaidez NP Ordering Physician: Jose Chaidez NP Date of Service: 05/26/25 Procedure(s): US scrotum Accession Number(s): [id number] cc: Jose Chaidez NP; Name,Meir ROSALES Reason [...] by: Santos Gonzalez MD 05/26/2025 02:16 PM [facility] Dictated By: Santos Gonzalez MD Signed By: <Electronically signed by Santos Gonzalez MD in OV> 05/26/25 1416 DD/ 1341 TD/TT: 05/26/25 1357 Finishing Machine Operator: Procedure Note Donotuseinterpreter, Image - 05/26/2025 [place] [address] Ultrasound Report Signed Patient: Rodrigo Ledesma#: [id number] : 1990Acct:[id number] Age/Sex: 34 / MADM Date: 05/26/25 Loc: HO.US Attending Dr: Jose Chaidez NP Ordering Physician: Jose Chaidez NP Date of Service: 05/26/25 Procedure(s): US scrotum Accession Number(s): [id number] cc: Jose Chaidez NP; Name,Meir ROSALES Reason [...] by: Santos Gonzalez MD 05/26/2025 02:16 PM [facility] Dictated By: Santos Gonzalez MD Signed By: <Electronically signed by Santos Gonzalez MD in OV> 05/26/25 1416 DD/ 1341 TD/TT: 05/26/25 1357 Finishing Machine Operator: Jose DARBY IMG US PROCEDURES Edited Resu lt - Final * Syphilis Screen (05/22/2025 3:56 PM EST) Only the most recent of2 resultswithin the time period is included. Syphilis Screen Nonreactive Nonreactive [facility] Blood 05/22/2025 3:56 PM EST 05/22/2025 5:30 PM EST Jose Chaidez [facility] BLOOD ORDERABLES Final Re sult Performing Organization Address [facility] de Phone Number [facility] [address] [place] [address] [phone] * Herpes Simple Virus Culture (05/22/2025 3:40 PM EST) Herpes Virus Culture SEE NOTE [facility] Comment:HERPES SIMPLEX VIRUS CULTURE Micro Number: [id number] Test Status: Final Specimen Source: Penis Specimen Quality: Adequate HSV Culture: Not IsolatedTHIS TEST WAS PERFORMED AT:[facility] [id number] MERATI,MD 05/22/2025 3:40 PM EST 05/22/2025 5:40 PM EST Narrative [facility] - 05/26/2025 2:33 PM EST LESION OF PENIS Jose HARDENP LAB MICROBIOLOGY - GENERAL OR DERABLES Final Result Performing Organization Address [facility] Co de Phone Number [facility] [address] [place] [address] [phone] * (ABNORMAL) CBC auto differential (04/17/2025 2:18 PM EST) White Blood Count 10.2 4.8 - 10.8 X10*3/uL [facility] Red Blood Count 4.87 4.60 - 5.80 X10*6/uL [facility] Hemoglobin 13.8(L) 14.0 - 18.0 g/dl [facility] Hematocrit 43.1 42.0 - 52.0 % [facility] Mean Corpuscular Volume 88.5 80.0 - 98.0 fL [facility] Mean Corpuscular Hemoglobin 28.3 27.0 - 33.0 pg [facility] Mean Corpuscular HGB Conc 32.0 31.0 - 36.0 g/dl [facility] Red Cell Distribution Width 14.5 11.0 - 16.0 % [facility] Platelet Count 320 160 - 400 X10*3/uL [facility] Mean Platelet Volume 9.8 9.4 - 12.4 fL [facility] Neutrophils Percent Auto 62.9 45 - 73 % [facility] Imm Gran Pct Auto 0.4 0.0 - 0.4 % [facility] Lymphocytes Percent Auto 24.9 20 - 40 % [facility] Monocytes Percent Auto 5.9 2 - 11 % [facility] Eosinophils Percent Auto 5.4(H) 0 - 4 % [facility] Basophils Percent Auto 0.5 0 - 2 % [facility] NRBC Pct Auto 0.0 0.0 - 0.2 /100WBC [facility] Neutrophils Absolute Auto 6.4 2.0 - 8.3 x10*3/uL [facility] Imm Gran Abs Auto 0.04(H) 0.00 - 0.03 X10*3/uL [facility] Lymphocytes Absolute Auto 2.5 1.2 - 4.9 X10*3/uL [facility] Monocytes Absolute Auto 0.6 0.1 - 1.2 X10*3/uL [facility] Eosinophils Absolute Auto 0.6(H) 0.0 - 0.4 X10*3/uL [facility] Basophils Absolute Auto 0.1 0.0 - 0.2 X10*3/uL [facility] NRBC Abs Auto 0.000 0.0 - 0.012 X10*3/uL [facility] Blood Venous blood specimen / Unknown 04/17/2025 2:18 PM EST 04/17/2025 4:10 PM EST us Meir Gama MD LAB BLOOD ORDERABLES Final Resul t Performing Organization Address [facility] Co de Phone Number [facility] [address] [place] [phone] * Hepatitis C Antibody with Reflex to HCV, RNA, Quantitative, Real-Time PCR (04/17/2025 2:18 PM EST) Hepatitis C Antibody Nonreactive Nonreactive [facility] Comment:Antibodies to HCV no t detected; does not exclude early acuteHCV infection. Blood Venous blood specimen / Unknown 04/17/2025 2:18 PM EST 04/17/2025 4:10 PM EST us Meir Gama MD LAB BLOOD ORDERABLES Final Resul t Performing Organization Address [facility] Phone Number [facility] [address] [place] [phone] * Hepatitis B surface antigen, EIA (04/17/2025 2:18 PM EST) Hepatitis B Surface Ag Negative Negative [facility] Blood Venous blood specimen / Unknown 04/17/2025 2:18 PM EST 04/17/2025 4:10 PM EST us Meir Gama MD LAB BLOOD ORDERABLES Final Resul t Performing Organization Address [facility] de Phone Number [facility] [address] [place] [phone] * HIV-1/2 Antigen and Antibodies, Fourth Generation, with Reflexes (04/17/2025 2:18 PM EST) HIV AB/AG Nonreactive Nonreactive [facility] Comment:HIV-1 p24 Ag and/or HIV-1/HIV-2 Ab not detected.A test result that is nonreactive does not exclude thepossibility of exposure to or infection with HIV-1 and/orHIV-2. Nonreactive results in this assay for individualswith prior exposure to HIV-1 and/or HIV-2 may be due toantigen and antibody levels that are below the limit ofdetection of this assay.The [employer] HIV Ag/Ab Combo assay result andsupplemental assay results should be interpreted inconjunction with the patient's clinical presentation,history and other laboratory results. If the results areinconsistent with clinical evidence, additional testing issuggested to confirm the result. Blood Venous blood specimen / Unknown 04/17/2025 2:18 PM EST 04/17/2025 4:10 PM EST us Meir Gama MD LAB BLOOD ORDERABLES Final Resul t Performing Organization Address City/[facility] Co de Phone Number [facility] [address] [place] [phone] * Hepatitis B Surface Antibody, Qualitative (04/17/2025 2:18 PM EST) [facility] ~Hepatitis B Surface Antibody NONREACTIVE Nonreactive [facility] Comment:Nonreactive: < 8.00 mIU/mL Blood Venous blood specimen / Unknown 04/17/2025 2:18 PM EST 04/17/2025 4:10 PM EST us Meir Gama MD LAB BLOOD ORDERABLES Final Resul t Performing Organization Address City/[facility] Co de Phone Number [facility] [address] [place] [phone] * Lipid Panel, Standard (04/17/2025 2:18 PM EST) [facility] Triglycerides 44 <150 mg/dL [facility] Comment:Desirable Triglyceri de: less than 150 mg/dLBorderline High Triglyceride 150-199 mg/dLHigh Triglyceride: 200-499 mg/dLVery High Triglyceride: greater than or equal to 5OO mg/dL Cholesterol 162 <200 mg/dL [facility] Comment:Desirable Cholestero l: less than 200 mg/dLBorderline High Cholesterol: 200-239 mg/dLHigh Cholesterol: greater than 239 mg/dL LDL Cholesterol Calculated 98 <100 mg/dL [facility] Comment:Desirable LDL: less than 100 mg/dLNear Optimal/Above Optimal LDL: 110- 129 mg/dLBorderline High LDL: 130-159 mg/dLHigh LDL: 160-189 mg/dLVery High LDL: greater than or equal to 190 mg/dL HDL Cholesterol 56 >40 mg/dL [facility] Comment:Desirable HDL: great er than 40 mg/dL Note: This HDL assay may give artificially low results in patients with liver disease. Blood Venous blood specimen / Unknown 04/17/2025 2:18 PM EST 04/17/2025 4:10 PM EST us Meir Name MD LAB BLOOD ORDERABLES Final Resul t [facility] [address] [place] [address] [phone] * (ABNORMAL) Comprehensive Metabolic Panel (04/17/2025 2:18 PM EST) Sodium 143 135 - 145 mmol/L [facility] Potassium 4.4 3.3 - 5.1 mmol/L [facility] Comment:Slight Hemolysis.Int erpret result with caution. Chloride 110(H) 96 - 108 mmol/L [facility] Carbon Dioxide 25 22 - 29 mmol/L [facility] Anion Gap 12 12 - 20 [facility] Urea Nitrogen (BUN) 11 9 - 16 mg/dL [facility] Creatinine, Serum 1.20 0.5 - 1.4 mg/dL [facility] Estimated Glomerular Filt Rate >60 [facility] Comment:Chronic Kidney Disea se: Estimated GFR < 60 mL/min/[id number] Kidney Disease: Estimated GFR < 15 mL/min/1.73m2 Glucose 89 60 - 115 mg/dL [facility] Calcium 9.3 8.4 - 10.2 mg/dL [facility] Bilirubin, Total 0.4 0.0 - 1.0 mg/dL [facility] Aspartate Amino Transferase 27 5 - 37 U/L [facility] Comment:Slight Hemolysis.Int erpret result with caution. Alanine Aminotransferase 15 0 - 40 U/L [facility] Total Protein 7.3 6.5 - 8.0 g/dL [facility] Albumin Level 4.5 3.5 - 5.0 g/dL [facility] Alkaline Phosphatase 55 39 - 117 U/L [facility] Blood Venous blood specimen / Unknown 04/17/2025 2:18 PM EST 04/17/2025 4:10 PM EST us Meir Gama MD LAB BLOOD ORDERABLES Final Resul t Performing Organization Address City/State/[facility] Co de Phone Number [facility] [address] [place] [phone] * POCT Hgb A1c (04/17/2025 2:10 PM EST) Hemoglobin A1C 5.3 4.0 - 5.7 % QC Media Lot # [id number] Lot# Expiration Date 42357,[id number] Blood 04/17/2025 2:10 PM EST Result Marisol Gama MD POINT OF CARE TEST ENTER/EDIT OR DERABLES Final Result * POCT Glucose (04/17/2025 2:09 PM EST) Glucose Blood, POC 105 60 - 200 mg/dL [employer] Lot # [id number] Lot# Expiration Date 130,[id number] Blood Capillary blood specimen / Unknown 04/17/2025 2:09 PM EST us Meir Gama MD POINT OF CARE TEST ENTER/EDIT OR DERABLES Final Result from Last 3 Months Insurance [facility] C3 Care Teams Inspector Filters Relationship Specialty Start Date End Date Jose Chaidez FNP [address] [place] [address] [phone] PCP - General Family Medicine 04/30/25 Natalie Barnes, SWEETIE [address] [place] [phone] Registered Nurse Family Medicine 04/21/25 Jojo Gamboa 04/21/25
--- OUTSIDE RECORDS SUMMARY | 2025-05-26 17:26 | XMS_ITS | Encounter Summary ---
Author Organization [employer] Address [address] [facility] 7t [place] [address] Care Team Providers Care Medical Referral Coordinator Name Role Phone Natalie Barnes RN Unavailable [phone] Jojo Gamboa Unavailable Jose Chaidez Primary Care Provider [phone] Encounter Details Date Type Department Care Team ([facility] Contact Info) Description 05/22/2025 Orders Only [facility] [address] [place] [address] Jose Chaidez FNP [address] [place] [address] Social History Tobacco Use Types Packs/Day Years [...] 1:00 PM EST Nurse Only [facility] [address] [place] [phone] 06/26/2025 2:30 PM EST Office Visit [address] [address] Jose Chaidez FNP [address] [place] [phone] documented as of this encounter Procedures Procedure Name Priority Date/Time Associated Diagnosis Comments HERPES SIMPLEX VIRUS CULTURE Routine 05/22/2025 3:40 PM EST documented in this encounter Results * Herpes Simple Virus Culture (05/22/2025 3:40 PM EST) Herpes Virus Culture SEE NOTE [facility] Comment:HERPES SIMPLEX VIRUS CULTURE Micro Number: [id number] Test Status: Final Specimen Source: Penis Specimen Quality: Adequate HSV Culture: Not IsolatedTHIS TEST WAS PERFORMED AT:[employer] [address] [id number] MERATI,MD 05/22/2025 3:40 PM EST 05/22/2025 5:40 PM EST Narrative [facility] - 05/26/2025 2:33 PM EST LESION OF PENIS Jose DARBY LAB MICROBIOLOGY - GENERAL OR DERABLES Final Result [facility] [address] [place] [phone] [phone] documented in this encounter Visit Diagnoses Not on filedocumented in this encounter Additional Health Concerns Assessment Noted Time PHQ-9 Depression Total Score: 19 025 10:59 AM EST documented as of this encounter Care Teams Medical Referral Coordinator Relationship Specialty Start Date End Date Jose Chaidez FNP [address] [place] [address] PCP - General Family Medicine 04/30/25 Natalie Barnes, RN [address] [place] [phone] Registered Nurse Family Medicine 04/21/25 Jojo Gamboa 04/21/25 documented as of this encounter
--- OUTSIDE RECORDS SUMMARY | 2025-05-26 17:26 | XMS_ITS | Encounter Summary ---
Author Organization [employer] Address [address] [facility] [address] 7t [place] [address] Care Team Providers Care Ornamental Machine Operator Name Role Phone Natalie Barnes RN Unavailable [phone] Jojo Gamboa Unavailable Jose Chaidez Primary Care Provider [phone] Reason for Visit * Reason Onset Date Comments chart prep 05/21/2025 Encounter Details Date Type Department Care Team ([facility] st Contact Info) Description 05/21/2025 Telephone [facility] MEDICINE [address] [place], [place] [phone] Radha Ramirez MA chart prep Social History Tobacco Use Types Packs/Day Years [...] the past 12 months, has t he [employer] gas, oil or water company threatened to [...] encounter Miscellaneous Notes * Telephone Encounter - Radha Ramirez MA - 05/21/2025 2:27 PM EST Chart Prep Labs: done Images: not applicable Referrals: appointment pending Vaccines due: Flu, Tdap, Td, and DTAP Screenings: not applicable Overdue care gaps: Tobacco documented in this encounter Plan of Treatment Upcoming Encounters Date Type Department Care Team (Late st Contact Info) Description 05/28/2025 1:00 PM EST Nurse Only [facility] MEDICINE [address] [place] [address] [phone] 06/26/2025 2:30 PM EST Office Visit [facility] MEDICINE [address] [place] [address] Jose Chaidez FNP [address] [place] [address] documented as of this encounter Visit Diagnoses Not on filedocumented in this encounter Additional Health Concerns Assessment Noted Time PHQ-9 Depression Total Score: 19 025 10:59 AM EST documented as of this encounter Care Teams Ornamental Machine Operator Relationship Specialty Start Date End Date Jose Chaidez FNP [address] [place] [address] PCP - General Family Medicine 04/30/25 Natalie Barnes, SWEETIE [address] [place] [address] Registered Nurse Family Medicine 04/21/25 Jojo Gamboa 04/21/25 documented as of this encounter
--- OUTSIDE RECORDS SUMMARY | 2025-05-26 17:26 | XMS_ITS | Encounter Summary ---
Author Organization [employer] Address [address] [facility] 7t [place] [address] Care Team Providers Care Head Worker Name Role Phone Natalie Barnes RN Unavailable [phone] Jojo Gamboa Unavailable Jose Chaidez Primary Care Provider [phone] Reason for Visit * Reason Comments Care Management C3CM- FOLLOW UP CALL Encounter Details Date Type Department Care Team ([facility] st Contact Info) Description 05/21/2025 Patient Outreach [facility] MED[facility]INE [address] [place] [address] Jose Chaidez FNP 230 [place] [address] Care Management (C3CM- FOLLOW UP CALL ) Social History Tobacco Use Types Packs/Day Years [...] as of this encounter Progress Notes * Natalie Barnes RN - 05/21/2025 12:34 PM EST CM Natalie Barnes RN placed outbound call to patient for follow up call. No answer at this time. LVM introducing herself from [facility] CM Department. Requested call back. CM left detailed voicemail with appointment details for PCP appointment 05/22/25 at 3pm Jose Chaidez [employer]RA[employer], PT_1 picker tender helper time set for 2:30pm. CM reinforced direct contact information or CHW for any additional questions or concerns. Education provided on Walk-In Urgent Care located in Lobby of [facility]. Patient provided with after-hours line for [facility], , which offer night time triage service and option to transfer to boring machine operator horizontal provider if needed. CM will attempt another follow upcall within 10 days. documented in this encounter Plan of Treatment Upcoming Encounters Date Type Department Care Team (Late st Contact Info) Description 05/28/2025 1:00 PM EST Nurse Only [address] [address] 06/26/2025 2:30 PM EST Office Visit [address] [address] Jose Chaidez FNP [address] [place] [address] documented as of this encounter Visit Diagnoses Not on filedocumented in this encounter Additional Health Concerns Assessment Noted Time PHQ-9 Depression Total Score: 19 025 10:59 AM EST documented as of this encounter Care Teams Head Worker Relationship Specialty Start Date End Date Jose Chaidez FNP [address] [place] [address] PCP - General Family Medicine 04/30/25 aNtalie Barnes RN [address] [place] [address] Registered Nurse Family Medicine 04/21/25 Jojo Gamboa 04/21/25 documented as of this encounter
--- OUTSIDE RECORDS SUMMARY | 2025-05-26 17:27 | XMS_ITS ---
Author Organization [employer] Address [address] [facility] 7t [place] [address] Care Team Providers Care Log Truck Driver Name Role Phone Natalie Barnes RN Unavailable [phone] Jojo Gamboa Unavailable Jose Chaidez Primary Care Provider [phone] CHW Complex Status:Enrolled (Active) Start date:04/21/2025 Enrollment date:04/30/2025 Enrollment reason:Referred by provider Overview Provider Referral- Referral from [facility]. Pt homeless and needs help establishing care. Please outreachto patient. Case Team Name Relationship Phone Jojo Gamboa(Responsible Staff) Continued Care and Services Coordination
--- OUTSIDE RECORDS SUMMARY | 2025-05-26 17:27 | XMS_ITS | Clinical Summary ---
Author Organization [facility] Address [address] [place] [address] Phone Care Team Providers Care Scow Derrick Operator Name Role Phone Keli Hester MD Primary [...] age to complete this topic Care Teams Scow Derrick Operator Relationship Specialty Start Date End Date Keli Hester MD PCP - General 01/19/17
--- OUTSIDE RECORDS SUMMARY | 2025-05-26 17:27 | XMS_ITS ---
Author Organization [employer] Address [address] [facility] 7t [place] [address] Care Team Providers Care Hvac Project Manager Name Role Phone Natalie Barnes RN Unavailable [phone] Jojo Gamboa Unavailable Jose Chaidez Primary Care Provider [phone] CM Complex Status:Enrolled (Active) Start date:04/21/2025 Enrollment date:05/12/2025 Enrollment reason:Referred by provider Overview Provider Referral- Referral from [facility]. Pt homeless and needs help establishing care. Case Team Name Relationship Phone Natalie Barnes RN(Responsible Staff) Registered Nurse Continued Care and Services Coordination
--- OUTSIDE RECORDS SUMMARY | 2025-05-26 17:27 | XMS_ITS | Encounter Summary ---
Author Organization [facility] Address [address] [place] [address] Phone Care Team Providers Care Wan Support Specialist Name Role Phone Keli Hester MD Primary Care Provider Unavailabl e Encounter Details Date Type Department Care Team (Late st Contact Info) Description 01/25/2017 Conversion Encounter [facility] - [address] [address] Social History Tobacco Use Types Packs/Day Years [...] on filedocumented in this encounter Care Teams Wan Support Specialist Relationship Specialty Start Date End Date Keli Hester MD PCP - General 01/19/17 documented as of this encounter
== END 2025-05-26 13:24 | disposition home or self-care (01) ==
LOC: HO.US 13:23
PROVIDERS: PCP Internal Medicine Geriatric Medicine
DX: N50.89 Other specified disorders of the male genital organs (principal)
CPT/HCPCS: 76870

== ENCOUNTER → 2025-05-26 13:25 | Outpatient (BNV) | payer MEDICAID, SELFPAY | PROVIDERS: PCP Internal Medicine Geriatric Medicine; Visit Provider Radiology Diagnostic Radiology | DX: N50.89 Other specified disorders of the male genital organs (principal) | CPT/HCPCS: 76870 ==

== ENCOUNTER 2025-05-29 13:48 | Outpatient (AMB) | payer MEDICAID, SELFPAY ==
--- OUTSIDE RECORDS SUMMARY | 2025-05-28 13:00 | XMS_ITS | Encounter Summary ---
Author Organization [employer] Address [address] [facility] [address] 7t [place] [address] Care Team Providers Care Child Welfare Counselor Name Role Phone Natalie Barnes RN Unavailable [phone] Jojo Gamboa Unavailable Jose Chaidez Primary Care Provider [phone] Reason for Visit * Reason Comments Immunizations Encounter Details Date Type Department Care Team ([facility] st Contact Info) Description 05/28/2025 1:00 PM EST Nurse Only [facility] MEDICINE [address] [place] [address] Jacki Velasquez RN Encounter for immunization Social History Tobacco Use Types Packs/Day Years [...] as of this encounter Progress Notes * Jacki Velasquez RN - 05/28/2025 1:00 PM EST S: Ti Ledesma is here for Immunizations. Pt states the only side effect was experiencing muscle soreness for two days. Ti Ledesma denies feeling sick today. Upon review of the electronic health record there is no contraindication for receiving the Hepatitis B vaccine today. Cats [cat dander] O: Hepatitis B 0.5ml, administered to left deltoid. Injection was tolerated well. No adverse reaction noted. A copy of the VIS informational sheet was provided and Ti Ledesma was advised to wait 15minutes post vaccination for monitoring of adverse reactions. Immunization History Administered Date(s) Administered DTP 1992, 1992, 1992, 02/08/1994 DTaP, 5 pertussis antigens 08/11/1997 Hep B, Adolescent or Pediatric 1992, 1992, 03/10/1993 HepB-CpG 04/27/2025, 05/28/2025 Hib (PRP-T) 1992, 1992, 1992, 10/08/1993 IPV 1992, 1992, 02/08/1994, 08/11/1997 Influenza, Split (incl. purified surface antigen) 05/19/2010 MMR 10/08/1993, 08/08/1996 Meningococcal MCV4P ACYW-135 04/05/2009 Novel [id number]-[id number], all formulations 04/05/2009 TD (adult), 2 Lf tetanus toxoid, preservative free, adsorbed 04/22/2004 Tdap 04/05/2009 A: Encounter for Immunization P: Ti Ledesma to follow up as needed. Jacki Velasquez RN documented in this encounter Plan of Treatment Upcoming Encounters Date Type Department Care Team (Late st Contact Info) Description 06/26/2025 2:30 PM EST Office Visit [facility] MEDICINE [address] [place] [address] Jose Chaidez FNP [address] [place] [address] documented as of this encounter Visit Diagnoses Diagnosis Encounter for immunization documented in this encounter Additional Health Concerns Assessment Noted Time PHQ-9 Depression Total Score: 19 025 10:59 AM EST documented as of this encounter Care Teams Child Welfare Counselor Relationship Specialty Start Date End Date Jose Chaidez FNP [address] [place] [address] PCP - General Family Medicine 04/30/25 Natalie Barnes, SWEETIE [address] [place] [address] Registered Nurse Family Medicine 04/21/25 Jojo Gamboa 04/21/25 documented as of this encounter
--- NOTE | 2025-05-29 14:06 | MHC.OFFVIS ---
Intake Visit Reasons: scrotal mass Intake Note: Reason for Visit: New Patient is present for Scrotal Mass Urology Meds: None Blood Thinners: None Labs: BUN: 11 Creatinine: 1.20(04/17/2025) Imaging: Scrotal US 05/26/2025 Last PVR: None Family History: Prostate Cancer? No Bladder Cancer? No Kidney Cancer? No Allergies No Known Allergies Allergy (Verified 05/29/25 14:08) HPI Comments Details: Ti is a pleasant male. He is a patient of Dr. Guadalupe. 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 PFSH Medical History No pertinent past medical history Social History Alcohol intake: never Substance Use Type: Crack/Cocaine and Marijuana Review of Systems Const Denies chills and Denies fever(s) Card Reports no additional complaints and Denies syncope Resp Denies cough GI Denies abdominal pain and Denies heartburn Reports as per HPI and Denies change in libido Neuro Denies syncope Psych Denies change in libido Endo Denies change in libido Physical Exam Const General: cooperative, healthy appearing, comfortable and no acute distress Orientation/consciousness: patient oriented x3 HEENT Face and sinus: Yes normal facial exam Mouth: moist mucous membranes Neck Neck: Yes normal visual inspection, Yes full ROM and Yes trachea midline Chest Chest palpation & inspection: normal inspection of the chest Resp Effort & Inspection: normal respiratory effort, able to speak in complete sentences and no respiratory distress GI Inspection: Yes normal to inspection Back/Spine/Pelvis Cervical Spine: normal cervical lordosis Thoracic/Lumbar Spine: thoracic and lumbar spine normal to inspection Skin General skin exam: no rashes or lesions noted Neuro General: patient oriented x3, gait normal, tone normal and moves all extremities Extrem General: Yes normal to inspection and Yes capillary refill normal Assessment & Plan Assessment & Plan (1) Scrotal cyst: Code(s): L72.9 - Follicular cyst of the skin and subcutaneous tissue, unspecified Category: Medical Plan Risks, benefits and alternatives to therapy were discussed. These include but are not limited to infection, bleeding, damage to local organs and tissues, need for further interventions. Anesthetic risks regarding cardiac arrhythmia, blood clots, and potential mortality were discussed. The patient understands the typical recovery time and the outpatient nature of the procedure. After consideration of these risks the patient gives full informed consent and they wish to move ahead with the procedure. - scrotal sebaceous cyst removal Medications: Discontinued doxycycline hyclate Discontinued Reason: Patient Completed Course 100 mg PO BID 20 tabs 0RF benzonatate Discontinued Reason: Patient Completed Course 100 mg PO TID PRN 30 caps 0RF cough ibuprofen Discontinued Reason: Patient Completed Course 600 mg PO Q6H PRN 30 tabs 0RF fever or pain azithromycin Discontinued Reason: Patient Completed Course For 250 mg dose pack: take 500 mg today (day 1), then 250 mg for 4 days (days 2-5) 6 tabs 0RF ibuprofen Discontinued Reason: Patient Completed Course 600 mg PO Q6H PRN 30 tabs 0RF pain Patient Instructions: This note is constructed using voice recognition software. While every effort has been made to ensure accuracy principal quality engineer errors may have been included. Imaging studies, laboratory and physical exam results were discussed and reviewed in detail. No major barriers to patient understanding were identified. An opportunity to ask questions regarding the treatment plan was provided. All questions were answered. The patient expressed understanding and agreement with the above treatment plan. The patient is aware they should contact our office by phone for worsening of their current condition or the appearance of new urologic symptoms. Compliance is encouraged with any medications and followup testing that is ordered. It is a privilege to participate in the urologic care of your patient. If you have any questions or concerns regarding treatment for the above conditions, or other urologic issues, please do not hesitate to contact me. The office telephone contact is [phone]. Sincerely, Dr Bassam Plummer MD, [facility] - Urology Compassionate Specialist Care for the Genitourinary System Coding Level of Care Code New Pt Level 4 (42119) Diagnoses Scrotal cyst L72.9
--- OUTSIDE RECORDS SUMMARY | 2025-05-29 15:29 | XMS_ITS | Encounter Summary ---
Author Organization [employer] Address [address] [facility] 7t [place] [address] Care Team Providers Care Piecer Up Name Role Phone Natalie Barnes RN Unavailable [phone] Jojo Gamboa Unavailable Jose Chaidez Primary Care Provider [phone] Reason for Referral * Consultation (Routine) - Authorized Specialty Diagnoses / Procedures Referred By Kasi owens Referred To Contact Urology Diagnoses Scrotal mass Jose Chaidez FNP [address] [place] [address] Phone: tel: fax: [facility] [address] [place], [place] Phone: tel: fax: Referral ID Status Reason Start Date Expiration Date Visits Requested Visits Authorized [id number] Authorized Specialty Services Required 5 05/27/2026 10 10 Encounter Details Date Type Department Care Team (Late st Contact Info) Description 05/27/2025 Telephone [facility] MEDICINE [address] [place] [address] Jose Chaidez FNP [address] [place] [address] Social History Tobacco Use Types Packs/Day Years [...] encounter Miscellaneous Notes * Telephone Encounter - MEHNAZ Bhakta - 05/27/2025 8:48 AM EST Pt got testicular US; mass confirmed; refer to urology. documented in this encounter Plan of Treatment Upcoming Encounters Date Type Department Care Team (Late st Contact Info) Description 06/26/2025 2:30 PM EST Office Visit [facility] MEDICINE [address] [place] [address] Jose Chaidez FNP [address] [place] [address] Scheduled Referrals Name Type Priority Associated Diagnoses Orde r Schedule Referral to Urology Outpatient Referral Routine Scrotal mass Expected: 05/27/2025 (Approximate), Expires: 05/27/2026 documented as of this encounter Visit Diagnoses Diagnosis Scrotal mass- Primary Other specified disorder of male genital organs documented in this encounter Additional Health Concerns Assessment Noted Time PHQ-9 Depression Total Score: 19 025 10:59 AM EST documented as of this encounter Care Teams Piecer Up Relationship Specialty Start Date End Date Jose Chaidez FNP [address] [place] [address] PCP - General Family Medicine 04/30/25 Natalie Barnes RN [address] [place] [address] Registered Nurse Family Medicine 04/21/25 Jojo Gamboa 04/21/25 documented as of this encounter
--- OUTSIDE RECORDS SUMMARY | 2025-05-29 15:29 | XMS_ITS | Encounter Summary ---
Author Organization [employer] Address [address] [facility] [address] 7t [place] [address] Care Team Providers Care Roll Slicing Machine Tender Name Role Phone Natalie Barnes RN Unavailable Jojo Gamboa Unavailable Jose Chaidez Primary Care Provider [phone] Encounter Details Date Type Department Care Team (Latest Contact Info) Description 05/28/2025 Travel Social History Tobacco Use Types Packs/Day [...] Description 06/26/2025 2:30 PM EST Office Visit [facility] MEDICINE [address] [place] [address] Jose Chaidez FNP [address] [place] [address] documented as of this encounter Visit Diagnoses Not on filedocumented in this encounter Additional Health Concerns Assessment Noted Time PHQ-9 Depression Total Score: 19 025 10:59 AM EST documented as of this encounter Care Teams Roll Slicing Machine Tender Relationship Specialty Start Date End Date Jose Chaidez FNP [address] [place] [address] PCP - General Family Medicine 04/30/25 Natalie Barnes, SWEETIE [address] [place] [address] Registered Nurse Family Medicine 04/21/25 Jojo Gamboa 04/21/25 documented as of this encounter
--- OUTSIDE RECORDS SUMMARY | 2025-05-29 15:30 | XMS_ITS | Encounter Summary ---
Author Organization [employer] Address [address] [facility] 7t [place] [address] Care Team Providers Care Slide Machine Tender Name Role Phone Natalie Barnes RN Unavailable [phone] Jojo Gamboa Unavailable Jose Chaidez Primary Care Provider [phone] Reason for Referral * Imaging (STAT) - Closed Specialty Diagnoses / Procedures Referred By Contrichard t Referred To Contact Radiology Diagnoses Testicular mass Procedures US Scrotum Jose Chaidez FNP [address] [place] [address] Phone: tel: fax: [address] [address] Phone: tel: fax: Referral ID Status Reason Start Date Expiration Date Visits Re quested Visits Authorized [id number] Closed 05/25/2025 05/25/2026 1 1 Encounter Details Date Type Department Care Team (Late st Contact Info) Description 05/25/2025 Orders Only [facility] MEDICINE [address] [place] [address] Jose Chaidez FNP [address] [place] [address] Testicular mass (Primary Dx) Social History Tobacco [...] this encounter Progress Notes * Jose Chaidez, SHOW WORKER - 05/25/2025 8:49 AM EST US for testicular mass needed prior to Urology referral. documented in this encounter Plan of Treatment Upcoming Encounters Date Type Department Care Team (Late st Contact Info) Description 06/26/2025 2:30 PM EST Office Visit [facility] MEDICINE [address] [place], [place] [phone] Jose Chaidez FNP [address] [place], [place] [phone] documented as of this encounter Procedures Procedure Name Priority Date/Time Associated Diagnosis Comments US SCROTUM STAT 05/26/2025 1:41 PM EST Testicular mass documented in this encounter Results * US Scrotum (05/26/2025 1:41 PM EST) Anatomical Region Laterality Modality Body Ultrasound 05/26/2025 1:41 PM EST Narrative 05/26/2025 2:18 PM EST [address] [address] Ultrasound Report Signed Patient: Ti Ledesma MR#: [id number] : 1990 Acct:[id number] Age/Sex: 34 / M ADM Date: 05/26/25 Loc: .US Attending Dr: Jose Chaidez NP Ordering Physician: Jose Chaidez NP Date of Service: 05/26/25 Procedure(s): US scrotum Accession Number(s): [id number] cc: Jose Chaidez LIME BOILER; Name,Meir ROSALES Reason for Exam: Testicular Mass [...] by: Santos Gonzalez MD 05/26/2025 02:16 PM [facility] Dictated By: Santos Gonzalez MD Signed By: <Electronically signed by Santos Gonzalez MD in OV> 05/26/25 1416 DD/ 1341 TD/TT: 05/26/25 1357 Button Grader: Procedure Note Donotuseinterpreter, Image - 05/26/2025 [place] [address] Ultrasound Report Signed Patient: Rodrigo Ledesma#: [id number] : 1990Acct:[id number] Age/Sex: 34 / MADM Date: 05/26/25 Loc: HO.US Attending Dr: Jose Chaidez NP Ordering Physician: Jose Chaidez NP Date of Service: 05/26/25 Procedure(s): US scrotum Accession Number(s): [id number] cc: Jose Chaidez NP; Name,Meir ROSALES Reason [...] 05/26/25 1416 DD/ 1341 TD/TT: 05/26/25 1357 Button Grader: Jose DARBY [facility] US PROCEDURES Edited Resu lt - Final documented in this encounter Visit Diagnoses Diagnosis Testicular mass- Primary Other specified disorder of male genital organs documented in this encounter Additional Health Concerns Assessment Noted Time PHQ-9 Depression Total Score: 19 025 10:59 AM EST documented as of this encounter Care Teams Slide Machine Tender Relationship Specialty Start Date End Date Jose Chaidez FNP [address] [place] [address] PCP - General Family Medicine 04/30/25 Natalie Barnes RN [address] [place] [address] Registered Nurse Family Medicine 04/21/25 Jojo Gamboa 04/21/25 documented as of this encounter
--- OUTSIDE RECORDS SUMMARY | 2025-05-29 15:30 | XMS_ITS ---
Author Organization [employer] Address [address] [facility] 7t [place] [address] Care Team Providers Care Seed Potato Cutter Name Role Phone Natalie Barnes RN Unavailable [phone] Jojo Gamboa Unavailable Jose Chaidez Primary Care Provider [phone] CHW Complex Status:Enrolled (Active) Start date:04/21/2025 Enrollment date:04/30/2025 Enrollment reason:Referred by provider Overview Provider Referral- Referral from [facility]. Pt homeless and needs help establishing care. Please outreachto patient. Case Team Name Relationship Phone Jojo Gamboa(Responsible Staff) Continued Care and Services Coordination
--- OUTSIDE RECORDS SUMMARY | 2025-05-29 15:30 | XMS_ITS | Clinical Summary ---
Author Organization [employer] Address [address] [place] [address] Care Team Providers Care Carbon Paper Coating Supervisor Name Role Phone Natalie Barnes RN Unavailable [phone] Jojo Gamboa Unavailable Jose Chaidez Primary Care Provider [phone] Allergies Active Allergy Reactions Criticality Noted Date [...] organization. Date Type Department Care Team Description 05/28/2025 1:00 PM EST Nurse Only [address] [address] Jacki Velasquez, SWEETIE Encounter for immunization 05/28/2025 Travel 05/27/[address] [address] Jose Chaidez FNP 05/25/2025 Orders Only [address] [address] Jose Chaidez FNP Testicular mass (Primary Dx) 05/22/2025 3:00 PM EST Office Visit [address] [address] Jose Chaidez FNP Encounter for immunization (Primary Dx); Substance abuse (CMS/HCC) (HCC); Housing insecurity; Anxiety and depression; Anal fissure; Phimosis; Lesion of penis; Scrotal cyst; Grade IV hemorrhoids 05/22/2025 Orders Only [address] [address] Jose Chaidez FNP 05/22/2025 Travel 05/21/[address] [address] Radha Ramirez MA chart prep 05/21/2025 Patient Outreach [address] [address] Jose Chaidez FNP Care Coordination (C3 Cm-[facility] Jojo Gamboa telephone call outreach) 05/21/2025 Patient Outreach [address] [address] Jose Chaidez FNP Care Management (C3CM- FOLLOW UP CALL ) 05/18/2025 Patient Outreach [address] [address] Jose Chaidez FNP 05/13/2025 Population Health Risk Score Community Care [facility] (C3) Department [address] [place] [phone] Provider, Population Health Generic 05/12/2025 Plan of Care Documentation [address] [address] 05/12/2025 Plan of Care Documentation [facility] [place] [address] 05/12/2025 Patient Outreach [facility] [place] [address] Jose Chaidez FNP Care Management (C3 COMPLEX INITIAL ASSESSMENT/ ENROLLMENT ) 04/30/2025 Patient Outreach [address] [address] Jose Chaidez FNP Care Coordination (C3 -[facility] Jojo Gamboa telephone call outreach ) 04/27/2025 1:00 PM EST Nurse Only [address] [address] Wanda Fuentes, SWEETIE Encounter for immunization 04/27/2025 Travel 04/22/2025 Patient Outreach [address] [address] Jose Chaidez FNP Care Coordination (C3 -[facility] Jojo Gamboa chart review) 04/21/2025 Results Follow-Up [address] [address] Jose Chaidez FNP POCT Glucose, POCT Hgb A1c, CBC auto differential, Additional followed-up results: 7 04/21/2025 Patient Outreach [address] [address] Natalie Barnes, RN Care Management (C3 -CHART REVIEW/) 04/21/2025 Patient Outreach [address] [address] Tarah Becerra, SWEETIE 04/17/2025 1:15 PM EST Office Visit [address] [address] Jose Chaidez FNP Encounter to establish care (Primary Dx); Substance abuse (CMS/HCC) (HCC); Other depression; Housing insecurity; Screening examination for STI 04/17/2025 Travel 04/16/[address] [address] Deon Barreto MA chartprep 03/16/2025 Telephone [facility] ENROLLMENT [address] [place] [address] Sury Wilkerson MD from Last 3 Months Immunizations Immunization Administration Dates Next Due DTP 02/08/1994, 3,1992,08/08 DTaP, 5 pertussis antigens 08/11/1997 Hep B, Adolescent or Pediatric 03/10/1993,1992,1992 HepB-CpG 05/28/2025,04/27/2025 Hib (PRP-T) 10/08/1993, 3,1992,08/08 IPV 08/11/1997, 4,1992,08/08 Influenza, Split (incl. eleanor fied surface antigen) 05/19/2010 MMR 08/08/1996,10/08/1993 Meningococcal MCV4P ACYW-135 04/05/2009 Novel Vrihwzcby-[id number], all formulations 04/05/2009 TD (adult), 2 Lf [...] Description 06/26/2025 2:30 PM EST Office Visit [facility] [address] [place] [address] Jose Chaidez, MANAGER SMALL BUSINESS [address] [place], [place] [phone] Health Maintenance Due Date Last Done Comments [...] Screening Completed 04/17/2025 Hepatitis B Vaccines Completed 05/28/2025, 04/27/2025, 03/10/1993, Additional history exists Hepatitis A Vaccines Aged [...] PM EST Narrative 05/26/2025 2:18 PM EST [address] [address] Ultrasound Report Signed Patient: Ti Ledesma MR#: [id number] : 1990 Acct:[id number] Age/Sex: 34 / M ADM Date: 05/26/25 Loc: HO.US Attending Dr: Jose Chaidez NP Ordering Physician: Jose Chaidez NP Date of Service: 05/26/25 Procedure(s): US scrotum Accession Number(s): [id number] cc: Jose Chaidez NP; Name,Meir ROSALES Reason [...] 05/26/25 1416 DD/ 1341 TD/TT: 05/26/25 1357 [employer] Substation Operator: Procedure Note Jennater, Image - 05/26/2025 [place] [address] Ultrasound Report Signed Patient: Rodrigo Ledesma#: [id number] : 1990Acct:[id number] Age/Sex: 34 / MADM Date: 05/26/25 Loc: HO.US Attending Dr: Jose Chaidez NP Ordering Physician: Jose Chaidez NP Date of Service: 05/26/25 Procedure(s): US scrotum Accession Number(s): [id number] cc: Jose Chaidez NP; Name,Meir ROSALES Reason [...] 05/26/25 1416 DD/ 1341 TD/TT: 05/26/25 1357 [employer] Substation Operator: Jose Chaidez MANAGER SMALL BUSINESS IMG US PROCEDURES Edited Resu lt - Final * Syphilis Screen (05/22/2025 3:56 PM EST) Only the most recent of2 resultswithin the time period is included. Syphilis Screen Nonreactive Nonreactive [facility] Blood 05/22/2025 3:56 PM EST 05/22/2025 5:30 PM EST Jose Chaidez [facility] BLOOD ORDERABLES Final Re sult Performing Organization Address City/[facility]/ZIP Co de Phone Number [facility] [address] [place] [phone] * Herpes Simple Virus Culture (05/22/2025 3:40 PM EST) Herpes Virus Culture SEE NOTE [facility] Comment:HERPES SIMPLEX VIRUS CULTURE Micro Number: [id number] Test Status: Final Specimen Source: Penis Specimen Quality: Adequate HSV Culture: Not IsolatedTHIS TEST WAS PERFORMED AT:[employer] [id number] MERATI,MD 05/22/2025 3:40 PM EST 05/22/2025 5:40 PM EST Narrative [facility] - 05/26/2025 2:33 PM EST LESION OF PENIS Jose Chaidez [facility] MICROBIOLOGY - GENERAL OR DERABLES Final Result Performing Organization Address City/[facility]/ZIP Co de Phone Number [facility] [address] [place] [phone] * (ABNORMAL) CBC auto differential (04/17/2025 2:18 PM EST) White Blood Count 10.2 4.8 - 10.8 X10*3/uL [facility] Red Blood Count 4.87 4.60 - 5.80 X10*6/uL [facility] Hemoglobin 13.8(L) 14.0 - 18.0 g/dl [facility] Hematocrit 43.1 42.0 - 52.0 % [facility] Mean Corpuscular Volume 88.5 80.0 - 98.0 fL [facility] Mean Corpuscular Hemoglobin 28.3 27.0 - 33.0 pg [facility] Mean Corpuscular HGB Conc 32.0 31.0 - 36.0 g/dl [facility] Red Cell Distribution Width 14.5 11.0 - 16.0 % [facility] Platelet Count 320 160 - 400 X10*3/uL [facility] Mean Platelet Volume 9.8 9.4 - 12.4 fL [facility] Neutrophils Percent Auto 62.9 45 - 73 % [facility] Imm Gran Pct Auto 0.4 0.0 - 0.4 % [facility] Lymphocytes Percent Auto 24.9 20 - 40 % [facility] Monocytes Percent Auto 5.9 2 - 11 % [facility] Eosinophils Percent Auto 5.4(H) 0 - 4 % [facility] Basophils Percent Auto 0.5 0 - 2 % [facility] NRBC Pct Auto 0.0 0.0 - 0.2 /100WBC [facility] Neutrophils Absolute Auto 6.4 2.0 - 8.3 x10*3/uL [facility] Imm Gran Abs Auto 0.04(H) 0.00 - 0.03 X10*3/uL [facility] Lymphocytes Absolute Auto 2.5 1.2 - 4.9 X10*3/uL [facility] Monocytes Absolute Auto 0.6 0.1 - 1.2 X10*3/uL [facility] Eosinophils Absolute Auto 0.6(H) 0.0 - 0.4 X10*3/uL [facility] Basophils Absolute Auto 0.1 0.0 - 0.2 X10*3/uL [facility] NRBC Abs Auto 0.000 0.0 - 0.012 X10*3/uL [facility] Blood Venous blood specimen / Unknown 04/17/2025 2:18 PM EST 04/17/2025 4:10 PM EST us Meir Gama MD LAB BLOOD ORDERABLES Final Resul t Performing Organization Address [facility] de Phone Number [facility] [address] [place] [phone] * Hepatitis C Antibody with Reflex to HCV, RNA, Quantitative, Real-Time PCR (04/17/2025 2:18 PM EST) Hepatitis C Antibody Nonreactive Nonreactive [facility] Comment:Antibodies to HCV no t detected; does not exclude early acuteHCV infection. Blood Venous blood specimen / Unknown 04/17/2025 2:18 PM EST 04/17/2025 4:10 PM EST us Meir Gama MD LAB BLOOD ORDERABLES Final Resul t Performing Organization Address [facility] Co de Phone Number [facility] [address] [place] [phone] * Hepatitis B surface antigen, EIA (04/17/2025 2:18 PM EST) Hepatitis B Surface Ag Negative Negative [facility] Blood Venous blood specimen / Unknown 04/17/2025 2:18 PM EST 04/17/2025 4:10 PM EST us Meir Gama MD LAB BLOOD ORDERABLES Final Resul t Performing Organization Address [facility] de Phone Number [facility] [address] [place] [phone] * HIV-1/2 Antigen and Antibodies, Fourth Generation, with Reflexes (04/17/2025 2:18 PM EST) [facility] HIV AB/AG Nonreactive Nonreactive [facility] Comment:HIV-1 p24 Ag and/or HIV-1/HIV-2 Ab not detected.A test result that is nonreactive does not exclude thepossibility of exposure to or infection with HIV-1 and/orHIV-2. Nonreactive results in this assay for individualswith prior exposure to HIV-1 and/or HIV-2 may be due toantigen and antibody levels that are below the limit ofdetection of this assay.The [employer] HIV Ag/Ab Combo assay result andsupplemental assay results should be interpreted inconjunction with the patient's clinical presentation,history and other laboratory results. If the results areinconsistent with clinical evidence, additional testing issuggested to confirm the result. Blood Venous blood specimen / Unknown 04/17/2025 2:18 PM EST 04/17/2025 4:10 PM EST us Meir Gama MD LAB BLOOD ORDERABLES Final Resul t Performing Organization Address [facility]/ZIP Co de Phone Number [facility] [address] [place] [phone] * Hepatitis B Surface Antibody, Qualitative (04/17/2025 2:18 PM EST) [facility] ~Hepatitis B Surface Antibody NONREACTIVE Nonreactive [facility] Comment:Nonreactive: < 8.00 mIU/mL Blood Venous blood specimen / Unknown 04/17/2025 2:18 PM EST 04/17/2025 4:10 PM EST us Meir Gama MD LAB BLOOD ORDERABLES Final Resul t Performing Organization Address City/[facility]/ZIP Co de Phone Number [facility] [address] [place] [phone] * Lipid Panel, Standard (04/17/2025 2:18 PM EST) Triglycerides 44 <150 mg/dL [facility] Comment:Desirable Triglyceri de: less than 150 mg/dLBorderline High Triglyceride 150-199 mg/dLHigh Triglyceride: 200-499 mg/dLVery High Triglyceride: greater than or equal to 5OO mg/dL Cholesterol 162 <200 mg/dL [facility] Comment:Desirable Cholestero l: less than 200 mg/dLBorderline High Cholesterol: 200-239 mg/dLHigh Cholesterol: greater than 239 mg/dL LDL Cholesterol Calculated 98 <100 mg/dL [facility] Comment:Desirable LDL: less than 100 mg/dLNear Optimal/Above Optimal LDL: 110- 129 mg/dLBorderline High LDL: 130-159 mg/dLHigh LDL: 160-189 mg/dLVery High LDL: greater than or equal to 190 mg/dL HDL Cholesterol 56 >40 mg/dL [facility] Comment:Desirable HDL: great er than 40 mg/dL Note: This HDL assay may give artificially low results in patients with liver disease. Blood Venous blood specimen / Unknown 04/17/2025 2:18 PM EST 04/17/2025 4:10 PM EST us Meir Name MD LAB BLOOD ORDERABLES Final Resul t [facility] [address] [place], [place] [phone] * (ABNORMAL) Comprehensive Metabolic Panel (04/17/2025 2:18 PM EST) Sodium 143 135 - 145 mmol/L [facility] Potassium 4.4 3.3 - 5.1 mmol/L [facility] Comment:Slight Hemolysis.Int erpret result with caution. Chloride 110(H) 96 - 108 mmol/L [facility] Carbon Dioxide 25 22 - 29 mmol/L [facility] Anion Gap 12 12 - 20 [facility] Urea Nitrogen (BUN) 11 9 - 16 mg/dL [facility] Creatinine, Serum 1.20 0.5 - 1.4 mg/dL [facility] Estimated Glomerular Filt Rate >60 [facility] Comment:Chronic Kidney Disea se: Estimated GFR < 60 mL/min/1.98a1Sjlqqd Kidney Disease: Estimated GFR < 15 mL/min/1.73m2 Glucose 89 60 - 115 mg/dL [facility] Calcium 9.3 8.4 - 10.2 mg/dL [facility] Bilirubin, Total 0.4 0.0 - 1.0 mg/dL [facility] Aspartate Amino Transferase 27 5 - 37 U/L [facility] Comment:Slight Hemolysis.Int erpret result with caution. Alanine Aminotransferase 15 0 - 40 U/L [facility] Total Protein 7.3 6.5 - 8.0 g/dL [facility] Albumin Level 4.5 3.5 - 5.0 g/dL [facility] Alkaline Phosphatase 55 39 - 117 U/L [facility] Blood Venous blood specimen / Unknown 04/17/2025 2:18 PM EST 04/17/2025 4:10 PM EST us Meir Gama MD LAB BLOOD ORDERABLES Final Resul t [facility] [address] [place] [phone] * POCT Hgb A1c (04/17/2025 2:10 PM EST) Hemoglobin A1C 5.3 4.0 - 5.7 % QC Media Lot # [id number] Lot# Expiration Date [id number] Blood 04/17/2025 2:10 PM EST us Meir Gama MD POINT OF CARE TEST ENTER/EDIT OR DERABLES Final Result * POCT Glucose (04/17/2025 2:09 PM EST) Glucose Blood, POC 105 60 - 200 mg/dL [employer] Lot # [id number] Lot# Expiration Date [id number] Blood Capillary blood specimen / Unknown 04/17/2025 2:09 PM EST Meir Name POINT OF CARE TEST ENTER/EDIT OR DERABLES Final Result from Last 3 Months [facility] Care Teams [employer] Co[employer] Supervisor Relationship Specialty Start Date End Date Jose Chaidez FNP [address] [place] [phone] PCP - General Family Medicine 04/30/25 Natalie Barnes, SWEETIE [address] [place] [address] [phone] Registered Nurse Family Medicine 04/21/25 Jojo Gamboa 04/21/25
--- OUTSIDE RECORDS SUMMARY | 2025-05-29 15:30 | XMS_ITS | Encounter Summary ---
Author Organization [employer] Address [address] [place] [address] Care Team Providers Care Set Rider Name Role Phone Natalie Barnes RN Unavailable [phone] Jojo Gamboa Unavailable Jose Chaidez Primary Care Provider [phone] Encounter Details Date Type Department Care Team ([facility] Contact Info) Description 05/22/2025 Orders Only [facility] [address] [place] [address] Jose Chaidez FNP [address] [place] [address] Social History Tobacco Use Types Packs/Day Years [...] Description 06/26/2025 2:30 PM EST Office Visit [facility] [address] [place] [phone] Jose Chaidez FNP [address] [place] [address] documented as of this encounter Procedures Procedure Name Priority Date/Time Associated Diagnosis Comments HERPES SIMPLEX VIRUS CULTURE Routine 05/22/2025 3:40 PM EST documented in this encounter Results * Herpes Simple Virus Culture (05/22/2025 3:40 PM EST) Herpes Virus Culture SEE NOTE [facility] Comment:HERPES SIMPLEX VIRUS CULTURE Micro Number: [id number] Test Status: Final Specimen Source: Penis Specimen Quality: Adequate HSV Culture: Not IsolatedTHIS TEST WAS PERFORMED AT:[employer] [id number] MERATI,MD 05/22/2025 3:40 PM EST 05/22/2025 5:40 PM EST Narrative [facility] - 05/26/2025 2:33 PM EST LESION OF PENIS Jose DARBY LAB MICROBIOLOGY - GENERAL OR DERABLES Final Result [facility] [address] [place] [phone] documented in this encounter Visit Diagnoses Not on filedocumented in this encounter Additional Health Concerns Assessment Noted Time PHQ-9 Depression Total Score: 19 025 10:59 AM EST documented as of this encounter Care Teams Set Rider Relationship Specialty Start Date End Date Jose Chaidez FNP [address] [place] [address] PCP - General Family Medicine 04/30/25 Natalie Barnes, SWEETIE [address] [place] [address] Registered Nurse Family Medicine 04/21/25 Jojo Gamboa 04/21/25 documented as of this encounter
--- OUTSIDE RECORDS SUMMARY | 2025-05-29 15:30 | XMS_ITS | Clinical Summary ---
Author Organization [facility] Address [address] [place] [phone] Phone Care Team Providers Care Web Press Operator Helper Offset Name Role Phone Keli Hester MD Primary [...] age to complete this topic Care Teams Web Press Operator Helper Offset Relationship Specialty Start Date End Date Keli Hester MD PCP - General 01/19/17
--- OUTSIDE RECORDS SUMMARY | 2025-05-29 15:30 | XMS_ITS | Encounter Summary ---
Author Organization [facility] Address [address] [place] [address] Phone Care Team Providers Care Laborer [employer] Name Role Phone Keli Hester MD Primary Care Provider Unavailabl e Encounter Details Date Type Department Care Team (Late st Contact Info) Description 01/25/2017 Conversion Encounter [facility] - [address] [address] Social History Tobacco Use Types Packs/Day Years [...] on filedocumented in this encounter Care Teams Laborer [employer] Relationship Specialty Start Date End Date Keli Hester MD PCP - General 01/19/17 documented as of this encounter
--- OUTSIDE RECORDS SUMMARY | 2025-05-29 15:30 | XMS_ITS ---
Author Organization [employer] Address [address] [facility] [address]t [place] [address] Care Team Providers Care Logging Specialist Name Role Phone Natalie Barnes RN Unavailable [phone] Jojo Gamboa Unavailable Jose Chaidez Primary Care Provider [phone] [facility] Status:Enrolled (Active) Start date:04/21/2025 Enrollment date:05/12/2025 Enrollment reason:Referred by provider Overview Provider Referral- Referral from [facility]. Pt homeless and needs help establishing care. Case Team Name Relationship Phone Natalie Barnes RN(Responsible Staff) Registered Nurse Continued Care and Services Coordination
== END 2025-05-29 14:33 | disposition home or self-care (01) ==
LOC: HO.HUSH 13:49
PROVIDERS: PCP Internal Medicine Geriatric Medicine; Visit Provider Urology
DX: L72.9 Follicular cyst of the skin and subcutaneous tissue, unspecified (principal)
CPT/HCPCS: 99204

== ENCOUNTER → 2025-05-29 13:48 | Outpatient (BNVA) | payer MEDICAID, SELFPAY | PROVIDERS: PCP Internal Medicine Geriatric Medicine; Visit Provider Urology | DX: L72.9 Follicular cyst of the skin and subcutaneous tissue, unspecified (principal) | CPT/HCPCS: 99202 ==